=== PATIENT | female | born 1955 | race Caucasian/White ===

== ENCOUNTER → 2018-06-04 09:07 | Outpatient (CLI) | payer OTHER, SELFPAY ==
--- NOTE | 2018-06-04 09:09 | DI.MG.S_ITS ---
BILATERAL DIGITAL SCREENING MAMMOGRAM 3D/2D WITH CAD: 06/04/2018 CLINICAL: Routine screening. Comparison is made to exams dated: 03/19/2017 mammogram, 06/06/2015 mammogram, and 02/22/2014 mammogram - [facility]. There are scattered fibroglandular elements in both breasts. Current study was also evaluated with a Computer Aided Detection (CAD) system. No significant masses, calcifications, or other findings are seen in either breast. There has been no significant interval change. IMPRESSION: NEGATIVE There is no mammographic evidence of malignancy. A 1 year screening mammogram is recommended.(06/05/2019) This exam was interpreted at Station ID: [id number]. NOTE: For mammograms, a report in lay terms will be sent to the patient. Approximately 15% of breast malignancies will not be visualized mammographically. In the management of a palpable breast mass, a negative mammogram must not discourage biopsy of a clinically suspicious lesion. Electronically Signed By: Alejandra [email or web address]/jm:06/06/2018 07:53:23 letter sent: Normal Exam ACR BI-RADS Category 1: Negative 3341F
== END ==
PROVIDERS: PCP Internal Medicine; Visit Provider Internal Medicine
DX: Z12.31 Encounter for screening mammogram for malignant neoplasm of breast (principal)
CPT/HCPCS: 77063; 77067

== ENCOUNTER → 2018-07-25 08:10 | Outpatient (CLI) | payer OTHER, SELFPAY ==
[2018-07-25 09:29] LABS: Cholesterol 306 mg/dL (140-199); HDL Cholesterol 98 mg/dL (40-60); LDL Cholesterol Calculated 182 mg/dL (<100); Triglycerides 129 mg/dL (35-150)
== END ==
PROVIDERS: PCP Internal Medicine; Visit Provider Internal Medicine
DX: E78.5 Hyperlipidemia, unspecified (principal)
CPT/HCPCS: 36415; 80061

== ENCOUNTER → 2019-09-08 09:39 | Outpatient (CLI) | payer MEDICARE, OTHER, SELFPAY ==
--- NOTE | 2019-09-08 | DI.MG.S_ITS ---
BILATERAL DIGITAL SCREENING MAMMOGRAM 3D/2D WITH CAD: 09/08/2019 CLINICAL: Routine screening. Comparison is made to exams dated: 03/19/2017 mammogram, 06/06/2015 mammogram, and 06/04/2018 mammogram - [facility]. There are scattered fibroglandular elements in both breasts. Current study was also evaluated with a Computer Aided Detection (CAD) system. No significant masses, calcifications, or other findings are seen in either breast. There has been no significant interval change. IMPRESSION: NEGATIVE There is no mammographic evidence of malignancy. A 1 year screening mammogram is recommended. This exam was interpreted at Station ID: [id number]. NOTE: For mammograms, a report in lay terms will be sent to the patient. Approximately 15% of breast malignancies will not be visualized mammographically. In the management of a palpable breast mass, a negative mammogram must not discourage biopsy of a clinically suspicious lesion. Electronically Signed By: Alejandra [email or web address]:09/08/2019 11:31:42 letter sent: Normal Exam ACR BI-RADS Category 1: Negative 3341F
== END ==
PROVIDERS: PCP Internal Medicine; Visit Provider Internal Medicine
DX: Z12.31 Encounter for screening mammogram for malignant neoplasm of breast (principal); Z13.820 Encounter for screening for osteoporosis; Z78.0 Asymptomatic menopausal state; Z82.62 Family history of osteoporosis
CPT/HCPCS: 77063; 77067; 77080

== ENCOUNTER → 2019-11-02 07:48 | Outpatient (CLI) | payer MEDICARE, OTHER, SELFPAY ==
--- NOTE | 2019-11-02 | DI.ECHO.S_ITS ---
[facility] +---------+ : : [id number] : [place] : : : : [id number] : : : : Phone: [phone]---------+ Echocardiogram Report + + :Name: KAVIN CAO Study Date: 11/02/2019 Height: 63 in : :[facility] Weight: 146 lb : : Gender: Female BSA: 1.7 m2 : :: 1955 Age: 64 yrs BP: 140/82 mmHg: :Reason For Study: Cardiomegaly : :Ordering Physician: Laura Llamas Performed By: Heaven Lovett : :Referring: LAURA LLAMAS : + + Interpretation Summary The left ventricle is normal in size. Left ventricular systolic function is normal without focal wall motion abnormalities. The ejection fraction is estimated to be 60-65%. Diastolic parameters suggest a relaxation abnormality of the left ventricle, consistent with probable normal filling pressures. The right ventricle is normal in size and function. The right ventricular systolic pressure is estimated to be at least 19 mmHg based on an estimated right atrial pressure of 3 mm Hg. Both atria are normal in size. There is mild aortic regurgitation. There is no other significant valvular heart disease. The ascending aorta is mild-moderately enlarged. Procedure: A two-dimensional transthoracic echocardiogram with color flow and Doppler was performed. The study quality was technically adequate. There is no prior echocardiogram noted for this patient. The patient was in normal sinus rhythm during the exam. Left Ventricle: The left ventricle is normal in size. Left ventricular wall thickness is mildly increased. Left ventricular systolic function is normal without focal wall motion abnormalities. The ejection fraction is estimated to be 60-65%. Diastolic parameters suggest a relaxation abnormality of the left ventricle, consistent with probable normal filling pressures. Right Ventricle: The right ventricle is normal in size and function. Atria: Both atria are normal in size. There is no Doppler evidence for an interatrial shunt. Mitral Valve: The mitral valve is normal in structure and function. There is trace mitral regurgitation. Aortic Valve: The aortic valve is trileaflet. The aortic valve opens well. There is no aortic valve stenosis. There is mild aortic regurgitation. Tricuspid Valve: The tricuspid valve is normal in structure and function. The right ventricular systolic pressure is estimated to be at least 19 mmHg based on an estimated right atrial pressure of 3 mm Hg. Right ventricular systolic pressure is normal. There is mild tricuspid regurgitation. Pulmonic Valve: The pulmonic valve is not well seen, but is grossly normal. There is a trace or physiologic amount of pulmonic regurgitation. There is no other significant valvular heart disease. Great Vessels: The aortic root is normal size. The ascending aorta is mild- moderately enlarged. The IVC is of normal diameter and collapses greater than 50% with a sniff. This suggests a low right atrial pressure of 3 mm Hg. Pericardium/ Pleura There is no pericardial effusion. There is no pleural effusion. MMode/2D Measurements & Calculations LVIDd: 3.9 cm LVOT diam: 2.0 cm LVIDs: 2.6 cm Ao root diam: 3.1 cm FS: 32.6 % asc Aorta Diam: 3.9 cm EPSS: 0.68 cm Ao Arch Diam (Prox Trans): 2.7 cm IVSd: 1.1 cm LVPWd: 0.97 cm LV siddiqi. diameter/BSA (cm/m^2): 2.3 LV sys. diameter/BSA (cm/m^2): 1.5 LA A2 area: 16.3 cm2 RA long axis: 4.0 cm LA A4 area: 11.8 cm2 RA area: 10.6 cm2 LA length (vol): 4.3 cm RA vol: 24.3 ml LA vol: 38.1 ml RA : 14.3 ml/m2 LA vol index: 22.5 ml/m2 IVC diam: 1.8 cm RVD1 (basal): 2.7 cm TAPSE: 2.3 cm Doppler Measurements & Calculations Ao V2 max: 122.7 cm/sec LVOT Max Guillermo: 93.7 cm/sec Ao V2 mean: 76.3 cm/sec LV V1 max P.5 mmHg Ao max P.0 mmHg LV V1 VTI: 20.4 cm Ao mean P.8 mmHg KRYSTAL(I,D): 2.5 cm2 Ao V2 VTI: 25.3 cm KRYSTAL(V,D): 2.4 cm2 sev ratio: 0.81 KRYSTAL indexed to BSA (cm^2/m^2): 1.5 MV E max guillermo: 66.4 cm/sec TR max guillermo: 200.0 cm/sec MV A max guillermo: 85.3 cm/sec TR max P.0 mmHg MV E/A: 0.78 PA V2 max: 63.0 cm/sec Med Peak E' Guillermo: 4.8 cm/sec PA V2 mean: 44.7 cm/sec E/E' med: 13.7 PA mean P.89 mmHg Lat Peak E' Guillermo: 8.5 cm/sec PA pr(Accel): 26.1 mmHg E/E' lat: 7.8 PA Accel Time: 0.13 sec E/e' average: 10.8 MV dec time: 0.19 sec MV P1/2t: 57.8 msec MV P1/2t max guillermo: 67.7 cm/sec SV(LVOT): 63.1 ml MVA(P1/2t): 3.8 cm2 Reading Physician:[id number] PM
== END ==
PROVIDERS: PCP Internal Medicine; Referring Provider Internal Medicine; Visit Provider Internal Medicine
DX: I08.2 Rheumatic disorders of both aortic and tricuspid valves (principal); I77.89 Other specified disorders of arteries and arterioles
CPT/HCPCS: 93306

== ENCOUNTER → 2021-04-28 11:48 | Outpatient (CLI) | payer MEDICARE, OTHER, SELFPAY ==
[2021-04-28 14:00] LABS: COVID19 -Nasal RAPID Negative (Negative)
== END ==
PROVIDERS: PCP Internal Medicine; Visit Provider Nurse Practitioner
DX: Z01.812 Encounter for preprocedural laboratory examination (principal); Z20.822 Contact with and (suspected) exposure to COVID-19
CPT/HCPCS: 87635; C9803

== ENCOUNTER → 2021-04-29 14:35 | Outpatient (CLI) | payer MEDICARE, OTHER, SELFPAY ==
--- NOTE | 2021-04-29 14:39 | DI.NM.S_ITS ---
PROCEDURE: NM EXERCISE TREADMILL NON NUC COMPARISON: None. INDICATIONS: Chest pain, unspecified FINDINGS: The patient exercised for 9 minutes and 0 seconds, reaching 9.7 METs, RISHABH -16%, and 92% of maximum predicted heart rate. No angina during the study. No ischemic ST changes. Appropriate BP response to exercise. IMPRESSION: Good exercise tolerance with no angina and no ischemic ST changes. Dictated by: Stephen Roach MD on 04/29/2021 at 16:32 Approved by: Stephen Roach MD on 04/29/2021 at 16:34
== END ==
PROVIDERS: PCP Internal Medicine; Referring Provider Internal Medicine; Visit Provider Internal Medicine
DX: R07.9 Chest pain, unspecified (principal)
CPT/HCPCS: 93017

== ENCOUNTER 2021-07-20 04:46 | Emergency (ER) | payer MEDICARE, OTHER, SELFPAY ==
[2021-07-20] VITALS (36 sets, daily range): BP systolic 117–187; BP diastolic 57–95; PULSE 61–81; RESP 7–21; TEMP 37.1; O2SAT 94–100; BMI 24.7
--- NOTE | 2021-07-20 05:05 | DI.RAD.S_ITS ---
PROCEDURE: XR CHEST 1V INDICATIONS: chest pain TECHNIQUE: One view of the chest was acquired. COMPARISON: None. FINDINGS: Surgical changes and devices: None. Lungs and pleura: Lungs are clear. No pleural effusions or pneumothorax. Mediastinum: Mediastinal contours appear normal. Heart size is normal. Bones and chest wall: No suspicious bony lesions. Overlying soft tissues appear unremarkable. IMPRESSION: No acute cardiopulmonary findings Note: Final report is concordant with preliminary interpretation by [facility] Approved by: Oscar Mcdonough M.D. on 07/20/2021 at 7:15
[2021-07-20 05:14] LABS: Add Manual Diff / Slide Review NO; Basophils Absolute Auto 100 /uL (0-100); Basophils Percent Auto 0.9 % (0-2); Eosinophils Absolute Auto 500 /uL (0-450); Eosinophils Percent Auto 7.6 % (2-4); Hemoglobin 14.3 g/dL (12.0-16.0); Lymphocytes Absolute Auto 2100 /uL (1100-4500); Lymphocytes Percent Auto 32.9 % (25-40); Mean Corpuscular Hemoglobin 31.7 PG (26-34); Mean Corpuscular Volume 90.6 fL (80-100); Monocytes Absolute Auto 1000 /uL (0-900); Monocytes Percent Auto 15.6 % (3-14); Neutrophils Absolute Auto 2800 /uL (1500-7000); Platelet Count 251 X10^3/uL (150-400); Red Blood Cell Count 4.52 X10^6/uL (4.0-5.2); Red Cell Distribution Width 12.9 % (11.6-14.8); White Blood Cell Count 6.5 X10^3/uL (4.5-11.0)
[2021-07-20 05:20] LABS: Alanine Aminotransferase 46 IU/L (<35); Albumin Globulin Ratio 1.6 (1.0-2.8); Alkaline Phosphatase 136 U/L (38-126); Aspartate Aminotransferase 43 IU/L (14-36); BUN Creatinine Ratio 20.3 (6-22); Bilirubin Total 0.7 mg/dL (0.2-1.3); Blood Urea Nitrogen 14 mg/dL (7-17); Calcium 10.8 mg/dL (8.4-10.2); Carbon Dioxide 27 mmol/L (22-32); Chloride 100 mmol/L (98-107); Creatine Kinase 53 U/L (30-135); Estimated Glomerular Filt Rate > 60.0 mL/min (>60); Globulin 3.2 g/dL (1.7-4.1); Glucose 110 mg/dL (80-110); HEMOLYSIS < 15 (0-50); Lipase 77 U/L (23-300); Sodium 139 mmol/L (137-145); Total Protein 8.2 g/dL (6.3-8.2)
[2021-07-20] MEDS: PANTOPRAZOLE 40 MG VIAL IV (05:22)
[2021-07-20 05:31] LABS: COVID19 -Nasal RAPID Negative (Negative)
[2021-07-20 05:32] LABS: Troponin I < 0.012 ng/mL (0.01-0.034)
--- NOTE | 2021-07-20 05:55 | ED.CHESTPAIN ---
HPI - Chest Pain <Ronda Cano DO - Last Filed: 07/24/21 18:39> General Chief Complaint: Chest Pain Stated Complaint: chest pain, heart burn, diarrhea Time Seen by Provider: 07/20/21 04:49 Source: patient Mode of arrival: Ambulatory Limitations: no limitations History of Present Illness HPI narrative: Patient is a 66-year-old female who presents with chest discomfort. She states she feels like she has acid reflux burning chest her chest feels heavy. It is non radiating. She denies any shortness of breath. She has never felt anything like this before. She has also had a few episodes of diarrhea today but she feels like that some control. She denies any abdominal pain no fever or chills. Related Data Previous Rx's Medication Instructions Recorded aspirin 81 mg tablet,delayed 81 mg PO DAILY #30 tab 07/21/21 release atorvastatin 10 mg tablet 20 mg PO DAILY #90 tab 07/21/21 losartan 25 mg tablet 25 mg PO DAILY #30 tab 07/21/21 Allergies Allergy/AdvReac Type Severity Reaction Status Date / Time hydrocodone [HYDROCODONE] Allergy Unknown Verified 07/21/21 04:32 Review of Systems <Ronda Cano DO - Last Filed: 07/24/21 18:39> Review of Systems Narrative: GENERAL: Denies chills, fatigue, malaise, fever, sweats, travel HEENT: Denies sinus pain, ear pain, sore throat, difficulty swallowing, neck pain RESPIRATORY: Denies dyspnea, cough, wheezing, hemoptysis, sputum. CARDIOVASCULAR: See HPI GASTROINTESTINAL: See HPI : Denies dysuria, frequency, incontinence, hematuria, urinary retention, flank pain. MUSCULOSKELETAL: Denies weakness, joint pain, or bony pain SKIN: No rash, no erythema, no pruritus NEUROLOGIC: Denies weakness, dizziness, headache, numbness, change in speech, confusion PSYCHIATRIC: No concerning psychosocial issues. 12 point review of systems is negative except for those stated above and HPI Patient History <DO Werner Light Last Filed: 07/24/21 18:39> Surgical History Fracture of ankle History of appendectomy Family History Brother Age: 71 COPD (chronic obstructive pulmonary disease) High cholesterol Father Diabetes mellitus Heart disease High cholesterol Social History household members: spouse Smoking Status: Never smoker alcohol intake: current Smoking Status: Never smoker alcohol intake frequency: 0-2 drinks per day Substance Use Type: does not use Exam <Rnoda Cano DO - Last Filed: 07/24/21 18:39> Initial Vital Signs Initial Vital Signs: Vital Signs Temperature 98.7 F 07/20/21 04:55 Pulse Rate 66 07/20/21 04:55 Respiratory Rate 17 07/20/21 04:55 Blood Pressure 185/95 H 07/20/21 04:55 Pulse Oximetry 100 07/20/21 04:55 GENERAL: Mildly anxious 66-year-old female no acute distress HEENT: Head atraumatic,EOMI, pupils reactive, face symmetric, moist mucous membranes CARDIOVASCULAR: Regular rate and rhythm without murmurs, rubs or gallops. RESPIRATORY: Breath sounds equal bilaterally, no wheezes rales or rhonchi. ABDOMEN: Soft, nontender. Normoactive bowel sounds all 4 quadrants. No guarding or rebound. : No CVA tenderness EXTREMITIES: Normal range of motion, no clubbing or edema. Neurovascularly intact NEUROLOGICAL: Alert and oriented x4.Normal gait and speech. SKIN: Warm, dry, no laceration, no petechiae, no rashes or lesions. <Allie Knott DO - Last Filed: 07/20/21 09:35> Initial Vital Signs Initial Vital Signs: Vital Signs Temperature 98.7 F 07/20/21 04:55 Pulse Rate 66 07/20/21 04:55 Respiratory Rate 17 07/20/21 04:55 Blood Pressure 185/95 H 07/20/21 04:55 Pulse Oximetry 100 07/20/21 04:55 Scores <Ronda Cnao DO - Last Filed: 07/24/21 18:39> HEART Score Heart Score history: Moderately Suspicious Heart Score EKG: Normal Heart Score Age: > or = 65 years old Heart Score risk factors: 1-2 risk factors Heart Score troponin: < or = to normal limit Heart Score Total: 4 <Allie Knott DO - Last Filed: 07/20/21 09:35> HEART Score Heart Score Total: 4 Course <Ronda Cano DO - Last Filed: 07/24/21 18:39> Orders Ordered: Discontinued Medications Aspirin (Aspirin 81 Mg Chew Tab) 324 mg PO NOW ONE Stop: 07/20/21 05:09 Last Admin: 07/20/21 05:23 Dose: Not Given Documented by: JULIO Nitroglycerin (Nitroglycerin 0.4 Mg Sl Tab) 0.4 mg SL [id number] PRN PRN Reason: Chest Pain Last Admin: 07/20/21 06:31 Dose: 0.4 mg Documented by: Admin: 07/20/21 06:26 Dose: 0.4 mg Documented by: Admin: 07/20/21 06:19 Dose: 0.4 mg Documented by: JULIO Pantoprazole Sodium (Pantoprazole 40 Mg Vial) 40 mg IV NOW ONE Stop: 07/20/21 05:09 Last Admin: 07/20/21 05:22 Dose: 40 mg Documented by: JULIO Vital Signs Vital signs: Vital Signs - 8 hr 07/20/21 04:55 07/20/21 06:20 07/20/21 06:21 Temperature 98.7 F Pulse Rate 66 71 Respiratory Rate 17 13 Blood Pressure 185/95 H 187/81 H Pulse Oximetry 100 98 07/20/21 06:25 07/20/21 06:26 07/20/21 06:30 Temperature Pulse Rate 77 78 Respiratory Rate 20 18 Blood Pressure 173/89 H 179/89 H 153/83 H Pulse Oximetry 95 97 07/20/21 06:31 07/20/21 06:35 07/20/21 06:40 Temperature Pulse Rate 79 81 Respiratory Rate 18 12 Blood Pressure 153/83 H 119/64 119/74 Pulse Oximetry 97 97 07/20/21 06:42 07/20/21 06:45 07/20/21 06:50 Temperature Pulse Rate 76 70 62 Respiratory Rate 18 15 10 L Blood Pressure 125/83 125/72 138/74 Pulse Oximetry 98 98 98 07/20/21 06:55 07/20/21 07:00 07/20/21 07:05 Temperature Pulse Rate 65 66 67 Respiratory Rate 7 L 11 L 21 Blood Pressure 158/78 H 143/75 H 141/76 H Pulse Oximetry 99 98 95 07/20/21 07:10 07/20/21 07:15 07/20/21 07:20 Temperature Pulse Rate 67 65 67 Respiratory Rate 11 L 13 16 Blood Pressure 134/73 140/80 134/77 Pulse Oximetry 96 97 97 07/20/21 07:25 07/20/21 07:30 07/20/21 07:35 Temperature Pulse Rate 67 68 65 Respiratory Rate 20 14 11 L Blood Pressure 138/75 156/75 H 136/65 Pulse Oximetry 96 96 96 07/20/21 07:40 07/20/21 07:45 07/20/21 07:50 Temperature Pulse Rate 67 65 64 Respiratory Rate 13 15 18 Blood Pressure 132/63 132/59 L 120/62 Pulse Oximetry 96 96 96 07/20/21 07:55 07/20/21 08:00 07/20/21 08:05 Temperature Pulse Rate 65 62 61 Respiratory Rate 17 14 16 Blood Pressure 137/63 129/57 L 130/61 Pulse Oximetry 96 96 96 07/20/21 08:10 07/20/21 08:15 07/20/21 08:20 Temperature Pulse Rate 63 67 65 Respiratory Rate 15 12 9 L Blood Pressure 133/63 123/65 131/63 Pulse Oximetry 95 95 96 07/20/21 08:25 07/20/21 08:30 07/20/21 08:35 Temperature Pulse Rate 65 65 67 Respiratory Rate 10 L 10 L 19 Blood Pressure 138/67 133/62 117/61 Pulse Oximetry 96 96 95 07/20/21 08:40 07/20/21 08:45 07/20/21 08:50 Temperature Pulse Rate 71 69 68 Respiratory Rate 17 12 12 Blood Pressure 122/66 131/71 119/62 Pulse Oximetry 94 94 95 <Allie Knott, - Last Filed: 07/20/21 09:35> Orders Ordered: Discontinued Medications Aspirin (Aspirin 81 Mg Chew Tab) 324 mg PO NOW ONE Stop: 07/20/21 05:09 Last Admin: 07/20/21 05:23 Dose: Not Given Documented by: JULIO Nitroglycerin (Nitroglycerin 0.4 Mg Sl Tab) 0.4 mg SL [id number] PRN PRN Reason: Chest Pain Last Admin: 07/20/21 06:31 Dose: 0.4 mg Documented by: Admin: 07/20/21 06:26 Dose: 0.4 mg Documented by: Admin: 07/20/21 06:19 Dose: 0.4 mg Documented by: JULIO Pantoprazole Sodium (Pantoprazole 40 Mg Vial) 40 mg IV NOW ONE Stop: 07/20/21 05:09 Last Admin: 07/20/21 05:22 Dose: 40 mg Documented by: JULIO Reevaluation(s) Reevaluation #1: This is a 66-year-old female who presented for chest pain, diaphoresis and some nausea and diarrhea overnight. Patient states she had some cold symptoms a week ago which had been resolving and she has been feeling much better. She woke up about 2:00 a.m. with some heartburn and then started feeling worse earlier this morning. She states she felt bad enough she came in. She has some nonspecific change on her EKG, new shell troponin is negative, chest x-ray is negative with no other major lab findings. Patient was seen independently evaluated by myself. She has a reassuring exam. Patient was signed out by Dr. Cano. Patient does have a family history of father and grandfather both having cardiac issues with her grandfather dying in his 60s and her father having multiple heart attacks in his 60s. She has a brother with multiple medical issues unlikely cardiac likely coronary artery disease. She has a statin. She states her blood pressure was quite elevated 170s over 101 at and they been monitoring it with her nurse practitioner. She has had a stress in 04/29/2021. Her chest pain resolved with 3 nitro. Patient does appear to be high risk. She was offered observation as I feel that would be most appropriate and this was made clear to the patient as well. Patient did decide to return home she is aware she has recurrent symptoms she is to return and we did close the loop with her primary care service so that they can follow-up shortly and have patient re-evaluated appropriately. Patient was asked to take an aspirin 81 mg daily. Time: 07:33 Vital Signs Vital signs: Vital Signs - 8 hr 07/20/21 04:55 07/20/21 06:20 07/20/21 06:21 Temperature 98.7 F Pulse Rate 66 71 Respiratory Rate 17 13 Blood Pressure 185/95 H 187/81 H Pulse Oximetry 100 98 07/20/21 06:25 07/20/21 06:26 07/20/21 06:30 Temperature Pulse Rate 77 78 Respiratory Rate 20 18 Blood Pressure 173/89 H 179/89 H 153/83 H Pulse Oximetry 95 97 07/20/21 06:31 07/20/21 06:35 07/20/21 06:40 Temperature Pulse Rate 79 81 Respiratory Rate 18 12 Blood Pressure 153/83 H 119/64 119/74 Pulse Oximetry 97 97 07/20/21 06:42 07/20/21 06:45 07/20/21 06:50 Temperature Pulse Rate 76 70 62 Respiratory Rate 18 15 10 L Blood Pressure 125/83 125/72 138/74 Pulse Oximetry 98 98 98 07/20/21 06:55 07/20/21 07:00 07/20/21 07:05 Temperature Pulse Rate 65 66 67 Respiratory Rate 7 L 11 L 21 Blood Pressure 158/78 H 143/75 H 141/76 H Pulse Oximetry 99 98 95 07/20/21 07:10 07/20/21 07:15 07/20/21 07:20 Temperature Pulse Rate 67 65 67 Respiratory Rate 11 L 13 16 Blood Pressure 134/73 140/80 134/77 Pulse Oximetry 96 97 97 07/20/21 07:25 07/20/21 07:30 07/20/21 07:35 Temperature Pulse Rate 67 68 65 Respiratory Rate 20 14 11 L Blood Pressure 138/75 156/75 H 136/65 Pulse Oximetry 96 96 96 07/20/21 07:40 07/20/21 07:45 07/20/21 07:50 Temperature Pulse Rate 67 65 64 Respiratory Rate 13 15 18 Blood Pressure 132/63 132/59 L 120/62 Pulse Oximetry 96 96 96 07/20/21 07:55 07/20/21 08:00 07/20/21 08:05 Temperature Pulse Rate 65 62 61 Respiratory Rate 17 14 16 Blood Pressure 137/63 129/57 L 130/61 Pulse Oximetry 96 96 96 07/20/21 08:10 07/20/21 08:15 07/20/21 08:20 Temperature Pulse Rate 63 67 65 Respiratory Rate 15 12 9 L Blood Pressure 133/63 123/65 131/63 Pulse Oximetry 95 95 96 07/20/21 08:25 07/20/21 08:30 07/20/21 08:35 Temperature Pulse Rate 65 65 67 Respiratory Rate 10 L 10 L 19 Blood Pressure 138/67 133/62 117/61 Pulse Oximetry 96 96 95 07/20/21 08:40 07/20/21 08:45 07/20/21 08:50 Temperature Pulse Rate 71 69 68 Respiratory Rate 17 12 12 Blood Pressure 122/66 131/71 119/62 Pulse Oximetry 94 94 95 MDM - Chest Pain <Ronda Cano DO - Last Filed: 07/24/21 18:39> Lab Data Result diagrams: 07/20/21 05:00 07/20/21 05:00 Labs: Lab Results 07/20/21 07/20/21 07/20/21 Range/Units 05:00 05:00 05:00 WBC 6.5 (4.5-11.0) X10^3/uL RBC 4.52 (4.0-5.2) X10^6/uL Hgb 14.3 (12.0-16.0) g/dL Hct 41.0 (36-46) % MCV 90.6 (80-100) fL MCH 31.7 (26-34) PG MCHC 35.0 (30-36) % RDW 12.9 (11.6-14.8) % Plt Count 251 (150-400) X10^3/uL Neut % (Auto) 43.0 L (50-75) % Lymph % (Auto) 32.9 (25-40) % Gentry % (Auto) 15.6 H (3-14) % Eos % (Auto) 7.6 H (2-4) % Baso % (Auto) 0.9 (0-2) % Neut # (Auto) 2800 (3073-1548) /uL Lymph # (Auto) 2100 (2999-4503) /uL Gentry # (Auto) 1000 H (0-900) /uL Eos # (Auto) 500 H (0-450) /uL Baso # (Auto) 100 (0-100) /uL Sodium 139 (137-145) mmol/L Potassium 4.0 (3.4-5.1) mmol/L Chloride 100 (98-107) mmol/L Carbon Dioxide 27 (22-32) mmol/L BUN 14 (7-17) mg/dL Creatinine 0.69 (0.52-1.04) mg/dL Estimated GFR > 60.0 (>60) mL/min BUN/Creatinine Ratio 20.3 (6-22) Glucose 110 (80-110) mg/dL Calcium 10.8 H (8.4-10.2) mg/dL Total Bilirubin 0.7 (0.2-1.3) mg/dL AST 43 H (14-36) IU/L ALT 46 H (<35) IU/L Alkaline Phosphatase 136 H (38-126) U/L Total Creatine Kinase 53 (30-135) U/L CK-MB (CK-2) TNP CK-MB (CK-2) Rel Index TNP Troponin I < 0.012 (0.01-0.034) ng/mL Total Protein 8.2 (6.3-8.2) g/dL Albumin 5.0 (3.5-5.0) g/dL Globulin 3.2 (1.7-4.1) g/dL Albumin/Globulin Ratio 1.6 (1.0-2.8) Lipase 77 (23-300) U/L SARS-CoV-2 (PCR) Negative (Negative) 07/20/21 Range/Units 07:23 WBC (4.5-11.0) X10^3/uL RBC (4.0-5.2) X10^6/uL Hgb (12.0-16.0) g/dL Hct (36-46) % MCV (80-100) fL MCH (26-34) PG MCHC (30-36) % RDW (11.6-14.8) % Plt Count (150-400) X10^3/uL Neut % (Auto) (50-75) % Lymph % (Auto) (25-40) % Gentry % (Auto) (3-14) % Eos % (Auto) (2-4) % Baso % (Auto) (0-2) % Neut # (Auto) (8263-6903) /uL Lymph # (Auto) (4283-0089) /uL Gentry # (Auto) (0-900) /uL Eos # (Auto) (0-450) /uL Baso # (Auto) (0-100) /uL Sodium (137-145) mmol/L Potassium (3.4-5.1) mmol/L Chloride (98-107) mmol/L Carbon Dioxide (22-32) mmol/L BUN (7-17) mg/dL Creatinine (0.52-1.04) mg/dL Estimated GFR (>60) mL/min BUN/Creatinine Ratio (6-22) Glucose (80-110) mg/dL Calcium (8.4-10.2) mg/dL Total Bilirubin (0.2-1.3) mg/dL AST (14-36) IU/L ALT (<35) IU/L Alkaline Phosphatase (38-126) U/L Total Creatine Kinase (30-135) U/L CK-MB (CK-2) CK-MB (CK-2) Rel Index Troponin I < 0.012 (0.01-0.034) ng/mL Total Protein (6.3-8.2) g/dL Albumin (3.5-5.0) g/dL Globulin (1.7-4.1) g/dL Albumin/Globulin Ratio (1.0-2.8) Lipase (23-300) U/L SARS-CoV-2 (PCR) (Negative) ECG Data Interpretation: Normal sinus rhythm rate 64 NM interval 184 QRS 82 QTC 437 T-wave inversion noted in lead [address] changes MDM Narrative Medical decision making narrative: Patient signed out to Dr. Knott This is a 66-year-old female comes in with complaint of chest pain, diaphoresis, heartburn and some diarrhea overnight. She tried oral medication at home. She ultimately came here had 3 nitro which improved her symptoms. She has had negative troponin x2 but does have some ST change between her 1st and 2nd EKG with flipped T-wave in V4 V5 and nonspecific change otherwise. She did not have priors for comparison. Chest x-ray and other labs do not show clear cause. We discussed observation which patient politely declines. She continues to be chest pain-free here in the department but spoke with the on-call physician to arrange short-term follow-up. Patient was requested to take an aspirin 81 mg daily and would likely benefit from new med perfusion scan she has had a treadmill stress in April. Dr. Ferrara the on-call physician will contact her service to let them know and patient has also been instructed to contact them if she has not heard from the office by noon tomorrow. Patient is also where she should return at any time if she has recurrent symptoms. <Allie Knott, DO - Last Filed: 07/20/21 09:35> Lab Data Labs: Lab Results 07/20/21 07/20/21 07/20/21 Range/Units 05:00 05:00 05:00 WBC 6.5 (4.5-11.0) X10^3/uL RBC 4.52 (4.0-5.2) X10^6/uL Hgb 14.3 (12.0-16.0) g/dL Hct 41.0 (36-46) % MCV 90.6 (80-100) fL MCH 31.7 (26-34) PG MCHC 35.0 (30-36) % RDW 12.9 (11.6-14.8) % Plt Count 251 (150-400) X10^3/uL Neut % (Auto) 43.0 L (50-75) % Lymph % (Auto) 32.9 (25-40) % Gentry % (Auto) 15.6 H (3-14) % Eos % (Auto) 7.6 H (2-4) % Baso % (Auto) 0.9 (0-2) % Neut # (Auto) 2800 (5889-6924) /uL Lymph # (Auto) 2100 (9839-3673) /uL Gentry # (Auto) 1000 H (0-900) /uL Eos # (Auto) 500 H (0-450) /uL Baso # (Auto) 100 (0-100) /uL Sodium 139 (137-145) mmol/L Potassium 4.0 (3.4-5.1) mmol/L Chloride 100 (98-107) mmol/L Carbon Dioxide 27 (22-32) mmol/L BUN 14 (7-17) mg/dL Creatinine 0.69 (0.52-1.04) mg/dL Estimated GFR > 60.0 (>60) mL/min BUN/Creatinine Ratio 20.3 (6-22) Glucose 110 (80-110) mg/dL Calcium 10.8 H (8.4-10.2) mg/dL Total Bilirubin 0.7 (0.2-1.3) mg/dL AST 43 H (14-36) IU/L ALT 46 H (<35) IU/L Alkaline Phosphatase 136 H (38-126) U/L Total Creatine Kinase 53 (30-135) U/L CK-MB (CK-2) TNP CK-MB (CK-2) Rel Index TNP Troponin I < 0.012 (0.01-0.034) ng/mL Total Protein 8.2 (6.3-8.2) g/dL Albumin 5.0 (3.5-5.0) g/dL Globulin 3.2 (1.7-4.1) g/dL Albumin/Globulin Ratio 1.6 (1.0-2.8) Lipase 77 (23-300) U/L SARS-CoV-2 (PCR) Negative (Negative) 07/20/21 Range/Units 07:23 WBC (4.5-11.0) X10^3/uL RBC (4.0-5.2) X10^6/uL Hgb (12.0-16.0) g/dL Hct (36-46) % MCV (80-100) fL MCH (26-34) PG MCHC (30-36) % RDW (11.6-14.8) % Plt Count (150-400) X10^3/uL Neut % (Auto) (50-75) % Lymph % (Auto) (25-40) % Gentry % (Auto) (3-14) % Eos % (Auto) (2-4) % Baso % (Auto) (0-2) % Neut # (Auto) (7812-1856) /uL Lymph # (Auto) (3262-0595) /uL Gentry # (Auto) (0-900) /uL Eos # (Auto) (0-450) /uL Baso # (Auto) (0-100) /uL Sodium (137-145) mmol/L Potassium (3.4-5.1) mmol/L Chloride (98-107) mmol/L Carbon Dioxide (22-32) mmol/L BUN (7-17) mg/dL Creatinine (0.52-1.04) mg/dL Estimated GFR (>60) mL/min BUN/Creatinine Ratio (6-22) Glucose (80-110) mg/dL Calcium (8.4-10.2) mg/dL Total Bilirubin (0.2-1.3) mg/dL AST (14-36) IU/L ALT (<35) IU/L Alkaline Phosphatase (38-126) U/L Total Creatine Kinase (30-135) U/L CK-MB (CK-2) CK-MB (CK-2) Rel Index Troponin I < 0.012 (0.01-0.034) ng/mL Total Protein (6.3-8.2) g/dL Albumin (3.5-5.0) g/dL Globulin (1.7-4.1) g/dL Albumin/Globulin Ratio (1.0-2.8) Lipase (23-300) U/L SARS-CoV-2 (PCR) (Negative) Imaging Data Chest x-ray: Radiologist's Impression: No acute findings. ECG Data Interpretation: Normal sinus rhythm rate 64 NM interval 184 QRS 82 QTC 437 T-wave inversion noted in lead [address] changes Sinus rhythm, rate of 64 NM 184 QRS 82 and QTC of 437. T-wave version in lead 3. Nonspecific change. No priors for comparison. EKG 2. Sinus rhythm rate of 67, NM 184 QRS is 78 QTC 443. Q-wave is still present in 3 slight T-wave inversion in AVF. Patient also has change in V4 V5 which does appear different from prior EKG from today. MDM Narrative Medical decision making narrative: This is a 66-year-old female comes in with complaint of chest pain, diaphoresis, heartburn and some diarrhea overnight. She tried oral medication at home. She ultimately came here had 3 nitro which improved her symptoms. She has had negative troponin x2 but does have some ST change between her 1st and 2nd EKG with flipped T-wave in V4 V5 and nonspecific change otherwise. She did not have priors for comparison. Chest x-ray and other labs do not show clear cause. We discussed observation which patient politely declines. She continues to be chest pain-free here in the department but spoke with the on-call physician to arrange short-term follow-up. Patient was requested to take an aspirin 81 mg daily and would likely benefit from new med perfusion scan she has had a treadmill stress in April. Dr. Ferrara the on-call physician will contact her service to let them know and patient has also been instructed to contact them if she has not heard from the office by noon tomorrow. Patient is also where she should return at any time if she has recurrent symptoms. Discharge Plan Departure Patient Disposition: Home Clinical Impression: Chest pain Qualifiers: Chest pain type: unspecified Qualified Code(s): R07.9 - Chest pain, unspecified Instructions: DI for Chest Pain Activity Restrictions/Additional Instructions: Follow up with your physician this week for recheck and repeat testing. I suspect that your chest pain was cardiac and recommend observation overnight. Follow up in the next 2-3 days for repeat testing such as a perfusion stress test. If you have not heard from the office by noon tomorrow please call them. I spoke with Dr. Polanco who will let your office know to contact you tomorrow. Would recommend an aspirin 81 mg daily until you see your physician. Continue home medication as prescribed. Please return for new chest pain, shortness of breath, lightheadedness or passing out, diaphoresis or sweating, persistent nausea vomiting, swelling extremities or other new or concerning symptoms. Prescriptions: No Action aspirin 81 mg Tablet,Delayed Release (Dr/Ec) 81 mg PO DAILY Qty: 30 0RF atorvastatin 10 mg tablet 20 mg PO DAILY Qty: 90 0RF losartan 25 mg tablet 25 mg PO DAILY Qty: 30 0RF Referrals: Laura Paz ARNP [Primary Care Provider] -
[2021-07-20] MEDS: NITROGLYCERIN 0.4 MG SL TAB SL ×3 (06:19→06:31)
[2021-07-20 07:53] LABS: Troponin I < 0.012 ng/mL (0.01-0.034)
== END 2021-07-20 09:03 | disposition home or self-care (01) ==
PROVIDERS: Emergency Medicine; Emergency Provider Emergency Medicine; PCP Internal Medicine
DX: R07.9 Chest pain, unspecified (principal); R19.7 Diarrhea, unspecified; Z20.822 Contact with and (suspected) exposure to COVID-19
CPT/HCPCS: 36415; 71045; 80053; 82550; 83690; 83735; 84484; 85025; 87635; 93005; 96374; 99284; C9803; C9113

== ENCOUNTER 2021-07-20 22:05 | Observation (INO) | payer MEDICARE, OTHER, SELFPAY ==
[2021-07-20 22:17] VITALS: BP 225/110; PULSE 65; RESP 18; TEMP 36.8; O2SAT 98
--- NOTE | 2021-07-20 22:17 | DI.RAD.S_ITS ---
PROCEDURE: XR CHEST 1V INDICATIONS: chest pain TECHNIQUE: One view of the chest was acquired. COMPARISON: [facility], CR, XR CHEST 1V, 07/20/2021, 5:34. FINDINGS: Surgical changes and devices: None. Lungs and pleura: Lungs are clear. No pleural effusions or pneumothorax. Mediastinum: Mediastinal contours appear normal. Heart size is normal. Bones and chest wall: No suspicious bony lesions. Overlying soft tissues appear unremarkable. IMPRESSION: Stable radiographic evaluation of the chest without acute cardiopulmonary abnormalities or focal airspace disease. Dictated by: Ethan Peralta M.D. on 07/20/2021 at 22:46 Approved by: Ethan Peralta M.D. on 07/20/2021 at 22:47
[2021-07-20 22:23] VITALS: PULSE 66; O2SAT 100
[2021-07-20 22:25] VITALS: BP 192/103; PULSE 72; RESP 12; O2SAT 100
--- NOTE | 2021-07-20 22:26 | ED.CHESTPAIN ---
HPI - Chest Pain General Chief Complaint: Chest Pain Stated Complaint: CHEST PAIN HIGH BLOOD PRESSURE Time Seen by Provider: 07/20/21 22:21 Source: patient Mode of arrival: Ambulatory History of Present Illness HPI narrative: 66-year-old female nonsmoker with history of hyperlipidemia presents for the 2nd time in the past 12 hours and a chief complaint of severe, 10 on a 10 central chest pressure and heaviness associated with this we spoke with the redness and diaphoresis. She denies any obvious provocation or palliation. There is no clear exertional component. She has had no fever or chills. She denies recent travel, history of blood clot. She was seen here earlier today and had very similar symptoms and felt much better after nitro. After lengthy discussion with the emergency provider a was recommended that she be admitted to the hospital but patient felt significantly better and would have preferred to go home. She was doing okay for much of the day and then again tonight at 9:00 p.m., while at rest her symptoms came on. When she got here she was 10/10 pain and improved to a 5/10 after 1st nitro Related Data Previous Rx's Medication Instructions Recorded atorvastatin 10 mg tablet 10 mg PO DAILY #90 tab 08/04/18 Allergies Allergy/AdvReac Type Severity Reaction Status Date / Time hydrocodone [HYDROCODONE] Allergy Unknown Unverified 12/15/17 12:09 Review of Systems Review of Systems Narrative: GENERAL: Denies chills, fatigue, malaise, fever, sweats. HEENT: Denies sinus pain, ear pain, sore throat, difficulty swallowing, dizziness. RESPIRATORY: Denies dyspnea, cough, wheezing, hemoptysis, sputum. CARDIOVASCULAR: See HPI GASTROINTESTINAL: See HPI : Denies dysuria, frequency, incontinence, hematuria, urinary retention. MUSCULOSKELETAL: denies weakness, joint pain, or bony pain SKIN: Denies rash, skin lesions, or other NEUROLOGIC: Denies weakness, headache, numbness, change in speech, confusion, seizures, incoordination. PSYCHIATRIC: No concerning psychosocial issues. 12 point review of systems is negative except for those stated above Patient History Family History Brother Age: 71 COPD (chronic obstructive pulmonary disease) High cholesterol Father Diabetes mellitus Heart disease High cholesterol Social History Smoking Status: Never smoker Smoking Status: Never smoker alcohol intake frequency: 0-2 drinks per day Substance Use Type: does not use Exam Narrative Exam Narrative: GENERAL: [66] year old patient appears stated age. Well-developed patient, in mild distress. HEAD: Atraumatic. Normocephalic. EYES: Pupils equal round and reactive. Extraocular motions intact. No scleral icterus. No injection or drainage. ENT: Nose without bleeding, purulent drainage. Throat without erythema, tonsillar hypertrophy or exudate. Airway patent. NECK: Trachea midline. Non tender CARDIOVASCULAR: Regular rate and rhythm without murmurs, gallops, or rubs. RESPIRATORY: Clear to auscultation. Breath sounds equal bilaterally. No wheezes, rales, or rhonchi. GASTROINTESTINAL: Abdomen soft, non-tender, nondistended. EXTREMITIES: No edema or joint tenderness. BACK: Nontender without deformity or crepitance. No flank tenderness. NEURO: AOx3. SKIN: No rash or erythema of visible areas Initial Vital Signs Initial Vital Signs: Vital Signs Temperature 98.3 F 07/20/21 22:17 Pulse Rate 65 07/20/21 22:17 Respiratory Rate 18 07/20/21 22:17 Blood Pressure 225/110 H 07/20/21 22:17 Pulse Oximetry 98 07/20/21 22:17 Course Orders Ordered: ED Orders 07/20/21 22:15 Complete Blood Count AUTO DIFF Stat Comprehensive Metabolic Panel Stat Lipase Stat Magnesium Stat Troponin & CK Cardiac Panel Stat 07/20/21 22:17 XR chest 1V Stat EKG-12 Lead Stat Nitroglycerin (Nitroglycerin 0.4 Mg Sl Tab) 0.4 mg SL [id number] PRN PRN Reason: Chest Pain Nitroglycerin (Nitroglycerin 0.4 Mg Sl Tab) 0.4 mg SL [id number] PRN PRN Reason: Chest Pain Discontinued Medications Acetaminophen (Acetaminophen 325 Mg Tablet) 650 mg PO NOW ONE Stop: 07/21/21 00:01 Last Admin: 07/21/21 00:07 Dose: 650 mg Documented by: RAQUEL Vital Signs Vital signs: Vital Signs - 8 hr 07/20/21 22:17 07/20/21 22:23 07/20/21 22:25 Temperature 98.3 F Pulse Rate 65 66 72 Respiratory Rate 18 12 Blood Pressure 225/110 H 192/103 H Pulse Oximetry 98 100 100 07/20/21 22:30 07/20/21 23:00 07/20/21 23:30 Temperature Pulse Rate 68 63 63 Respiratory Rate 11 L Blood Pressure 176/98 H 169/80 H 155/72 H Pulse Oximetry 99 97 98 07/21/21 00:09 07/21/21 00:10 07/21/21 00:30 Temperature Pulse Rate 66 67 61 Respiratory Rate 19 Blood Pressure 183/83 H 183/81 H Pulse Oximetry 99 98 97 07/21/21 01:00 Temperature Pulse Rate 64 Respiratory Rate 12 Blood Pressure 185/81 H Pulse Oximetry 97 MDM - Chest Pain Lab Data Result diagrams: 07/20/21 22:15 07/20/21 22:15 Labs: Lab Results 07/20/21 07/20/21 07/20/21 Range/Units 22:15 22:15 22:15 WBC 6.1 (4.5-11.0) X10^3/uL RBC 4.51 (4.0-5.2) X10^6/uL Hgb 14.3 (12.0-16.0) g/dL Hct 41.1 (36-46) % MCV 91.2 (80-100) fL MCH 31.6 (26-34) PG MCHC 34.7 (30-36) % RDW 13.0 (11.6-14.8) % Plt Count 256 (150-400) X10^3/uL Neut % (Auto) 52.3 (50-75) % Lymph % (Auto) 26.2 (25-40) % [place] % (Auto) 15.3 H (3-14) % Eos % (Auto) 5.7 H (2-4) % Baso % (Auto) 0.5 (0-2) % Neut # (Auto) 3200 (7439-4102) /uL Lymph # (Auto) 1600 (4577-5405) /uL [place] # (Auto) 900 (0-900) /uL Eos # (Auto) 300 (0-450) /uL Baso # (Auto) 0 (0-100) /uL Sodium 137 (137-145) mmol/L Potassium 3.7 (3.4-5.1) mmol/L Chloride 98 (98-107) mmol/L Carbon Dioxide 31 (22-32) mmol/L BUN 13 (7-17) mg/dL Creatinine 0.70 (0.52-1.04) mg/dL Estimated GFR > 60.0 (>60) mL/min BUN/Creatinine Ratio 18.6 (6-22) Glucose 109 (80-110) mg/dL Calcium 10.3 H (8.4-10.2) mg/dL Magnesium 1.9 (1.6-2.3) mg/dL Total Bilirubin 0.7 (0.2-1.3) mg/dL AST 41 H (14-36) IU/L ALT 42 H (<35) IU/L Alkaline Phosphatase 136 H (38-126) U/L Total Creatine Kinase 48 (30-135) U/L CK-MB (CK-2) TNP CK-MB (CK-2) Rel Index TNP Troponin I < 0.012 (0.01-0.034) ng/mL Total Protein 8.5 H (6.3-8.2) g/dL Albumin 5.0 (3.5-5.0) g/dL Globulin 3.5 (1.7-4.1) g/dL Albumin/Globulin Ratio 1.4 (1.0-2.8) Lipase 74 (23-300) U/L Imaging Data Chest x-ray: Radiologist's Impression: [address] [id number] ReportSigned Patient: Lorie Ferguson R#: [id number]: 4Acct:[id number]/Sex: 66 / FDate of Service: 07/20/21Loc: EDAccession Number: [id number] Procedure: XR chest 1V Ordering Provider: Jeremy Braden D.O. PROCEDURE: XR CHEST 1V INDICATIONS: chest pain TECHNIQUE: One view of the chest was acquired. COMPARISON: [facility], [place], XR CHEST 1V, 07/20/2021, 5:34. FINDINGS: Surgical changes and devices: None. Lungs and pleura: Lungs are clear. No pleural effusions or pneumothorax. Mediastinum: Mediastinal contours appear normal. Heart size is normal. Bones and chest wall: No suspicious bony lesions. Overlying soft tissues appear unremarkable. IMPRESSION: Stable radiographic evaluation of the chest without acute cardiopulmonary abnormalities or focal airspace disease. Dictated by: Ethan Peralta M.D. on 07/20/2021 at 22:46 Approved by: Ethan Peralta M.D. on 07/20/2021 at 22:47 [facility] Narrative Medical decision making narrative: Patient with recurrence of high risk chest pain, pressure with radiation, diaphoresis and nausea, not obviously exertional, multiple troponins are unremarkable and EKG showed no occlusive or ischemic findings. Patient was appropriate for admission early this morning but elected to go home, upon return her symptoms or worse and she is quick to agree. On admission she is pain free. She is in full understanding and agreement with the plan. Discharge Plan Departure Patient Disposition: Admitted as Observation Clinical Impression: Chest pain Qualifiers: Chest pain type: unspecified Qualified Code(s): R07.9 - Chest pain, unspecified Admit Date/Time: 07/21/21 03:35 Admit Provider: Suzanne Cherry
[2021-07-20 22:30] VITALS: BP 176/98; PULSE 68; O2SAT 99
[2021-07-20 22:30] LABS: Add Manual Diff / Slide Review NO; Basophils Absolute Auto 0 /uL (0-100); Basophils Percent Auto 0.5 % (0-2); Eosinophils Absolute Auto 300 /uL (0-450); Eosinophils Percent Auto 5.7 % (2-4); Hematocrit 41.1 % (36-46); Hemoglobin 14.3 g/dL (12.0-16.0); Lymphocytes Absolute Auto 1600 /uL (1100-4500); Lymphocytes Percent Auto 26.2 % (25-40); Mean Corpuscular HGB Conc 34.7 % (30-36); Mean Corpuscular Hemoglobin 31.6 PG (26-34); Mean Corpuscular Volume 91.2 fL (80-100); Monocytes Absolute Auto 900 /uL (0-900); Monocytes Percent Auto 15.3 % (3-14); Neutrophils Absolute Auto 3200 /uL (1500-7000); Neutrophils Percent Auto 52.3 % (50-75); Platelet Count 256 X10^3/uL (150-400); Red Blood Cell Count 4.51 X10^6/uL (4.0-5.2); White Blood Cell Count 6.1 X10^3/uL (4.5-11.0)
[2021-07-20 22:33] LABS: Alanine Aminotransferase 42 IU/L (<35); Albumin Globulin Ratio 1.4 (1.0-2.8); Alkaline Phosphatase 136 U/L (38-126); Aspartate Aminotransferase 41 IU/L (14-36); BUN Creatinine Ratio 18.6 (6-22); Bilirubin Total 0.7 mg/dL (0.2-1.3); Blood Urea Nitrogen 13 mg/dL (7-17); Calcium 10.3 mg/dL (8.4-10.2); Carbon Dioxide 31 mmol/L (22-32); Chloride 98 mmol/L (98-107); Creatine Kinase 48 U/L (30-135); Estimated Glomerular Filt Rate > 60.0 mL/min (>60); Globulin 3.5 g/dL (1.7-4.1); Glucose 109 mg/dL (80-110); HEMOLYSIS < 15 (0-50); Lipase 74 U/L (23-300); Magnesium 1.9 mg/dL (1.6-2.3); Potassium 3.7 mmol/L (3.4-5.1); Sodium 137 mmol/L (137-145); Total Protein 8.5 g/dL (6.3-8.2)
[2021-07-20 22:45] LABS: Troponin I < 0.012 ng/mL (0.01-0.034)
[2021-07-20 23:00] VITALS: BP 169/80; PULSE 63; RESP 11; O2SAT 97
[2021-07-20 23:30] VITALS: BP 155/72; PULSE 63; O2SAT 98
[2021-07-21] VITALS (23 sets, daily range): BP systolic 145–185; BP diastolic 77–92; PULSE 55–77; RESP 8–34; O2SAT 95–100; BMI 24.7
[2021-07-21] MEDS: ACETAMINOPHEN 325 MG TABLET 650 MG PO (00:07)
--- NOTE | 2021-07-21 04:12 | PM.HP.1 ---
History of Present Illness History of Present Illness Date Patient Seen: 07/21/21 Time Patient Seen: 04:12 Chief complaint: CHEST PAIN HIGH BLOOD PRESSURE Narrative: Lorie Ferguson is a 66-year-old female with hyperlipidemia presented twice today once in the morning of 07/20 and returned tonight with similar complaints of chest pain. During her 1st visit she was hydrated given nitroglycerin and her symptoms seemed resolved. They wanted to keep her in for additional testing however she decided to go home earlier yesterday. She returned at 2100 with a similar feeling of chest pain. She had pressure in her chest that would not let up dry mouth. She did have some nausea and described having heartburn for which she took Pepto-Bismol but the heartburn continued to persist then becoming chest pressure and pain. She denies any shortness of breath, abdominal pain, dysuria, diarrhea or constipation, any edema of her lower extremities, numbing or tingling of her upper or lower extremities. A family history of early cardiac deaths on the part of her grandparents and her father had multiple MIs and diabetes type 2. She is currently being treated for high cholesterol. Currently she is afebrile, blood pressure 185/81, heart rate 64, respiratory rate 12, oxygen saturation of 97% on room air, she weighs 63.5 kg. BC is unremarkable her platelet count is 256, she does have a elevated calcium at 10.3 corrected is 9.5, AST 41 ALT 42 alk-phos 136 and protein 8.5, COVID-19 PCR done on 07/20 was negative. She had another episode of chest pressure and shortness of breath and underwent echocardiogram in October of 2020. She states that the echocardiogram indicated having in her large a alert at however review of the echo, I did not see anything referring to enlarged aorta. She went to a subsequent Romain protocol stress test in April of this year and that was normal. Patient History Surgical History Fracture of ankle History of appendectomy Family & Social History Family History Brother Age: 71 COPD (chronic obstructive pulmonary disease) High cholesterol Father Diabetes mellitus Heart disease High cholesterol Tobacco & Substance use: Smoking Status Never smoker alcohol intake frequency 0-2 drinks per day Substance Use Type does not use Meds Home Medications and Allergies Home Medications Medication Instructions Recorded Confirmed Type atorvastatin 10 mg tablet 10 mg PO DAILY #90 tab 08/04/18 Rx Allergies Allergy/AdvReac Type Severity Reaction Status Date / Time hydrocodone [HYDROCODONE] Allergy Unknown Verified 07/21/21 04:32 Review of Systems Review of Systems ROS: Yes All systems reviewed with the patient and are negative except as otherwise documented Exam Vital Signs (past 8 hours): - 07/20/21 22:17 07/20/21 22:23 07/20/21 22:25 Temperature 98.3 F Pulse Rate 65 66 72 Respiratory Rate 18 12 Blood Pressure 225/110 H 192/103 H Pulse Oximetry 98 100 100 07/20/21 22:30 07/20/21 23:00 07/20/21 23:30 Temperature Pulse Rate 68 63 63 Respiratory Rate 11 L Blood Pressure 176/98 H 169/80 H 155/72 H Pulse Oximetry 99 97 98 07/21/21 00:09 07/21/21 00:10 07/21/21 00:30 Temperature Pulse Rate 66 67 61 Respiratory Rate 19 Blood Pressure 183/83 H 183/81 H Pulse Oximetry 99 98 97 07/21/21 01:00 Temperature Pulse Rate 64 Respiratory Rate 12 Blood Pressure 185/81 H Pulse Oximetry 97 Oxygen Delivery Method Room Air Narrative Exam Narrative: Gen: Alert, oriented, well-developed 66 y.o. female, NAD HEENT: normocephalic, atraumatic, conjunctiva clear, sclera non-icteric, oral mucosa pink and moist Neck: supple, full ROM, no JVD, trachea is midline Resp: Lungs CTA, non-labored breathing CV: RRR, no murmur or rubs Abd: soft, non-tender, normoactive BTs Skin: no lesions or rashes, dry and intact Neuro: Alert and oriented X 4 w/no focal deficits. Speech clear and coherent. Extremities: trace edema at the sock lines, moves all 4 extremities, is ambulatory, negative Alok?s sign Psyche: normal mood and affect. Objective Labs Result Diagrams: 07/20/21 22:15 07/20/21 22:15 Labs: Laboratory Results - last 24 hr 07/20/21 07/20/21 07/20/21 22:15 22:15 22:15 WBC 6.1 RBC 4.51 Hgb 14.3 Hct 41.1 MCV 91.2 MCH 31.6 MCHC 34.7 RDW 13.0 Plt Count 256 Neut % (Auto) 52.3 Lymph % (Auto) 26.2 [place] % (Auto) 15.3 H Eos % (Auto) 5.7 H Baso % (Auto) 0.5 Neut # (Auto) 3200 Lymph # (Auto) 1600 [place] # (Auto) 900 Eos # (Auto) 300 Baso # (Auto) 0 Sodium 137 Potassium 3.7 Chloride 98 Carbon Dioxide 31 BUN 13 Creatinine 0.70 Estimated GFR > 60.0 BUN/Creatinine Ratio 18.6 Glucose 109 Calcium 10.3 H Magnesium 1.9 Total Bilirubin 0.7 AST 41 H ALT 42 H Alkaline Phosphatase 136 H Total Creatine Kinase 48 CK-MB (CK-2) TNP CK-MB (CK-2) Rel Index TNP Troponin I < 0.012 Total Protein 8.5 H Albumin 5.0 Globulin 3.5 Albumin/Globulin Ratio 1.4 Lipase 74 Assessment & Plan Assessment & Plan narrative: Lorie Ferguson will be observed for further testing to identify a cause for her chest pain. Chest pain r/o ACS, acute, present on admission ? Limited Echo in am ? Pharmacological stress test ? Start ASA 81 mg ? Received nitro X 2 in the ED ? EKG shows no ischemic changes ? Trend troponin X 3, 1st 2 were negative Hypertension ? Start/continue losartan 25 mg p.o. once daily titrate slowly HLD ? Lipid panel, pending ? Start/continue atorvastatin 40 mg po at bedtime Risk stratification ? Fasting lipid panel scheduled for 0500 labs ? A1c pending VTE Prophylaxis: Wells risk score 0 Bilateral SCDs Patient is placed into observation as her stay is not expected to exceed 2 midnights. FEN: IV fluids: saline lock, diet: heart healty, labs: CBC, C/BMP, liver enzymes, Mag, PT/INR Consultants None Dispo: probable discharge to home, possible outpatient referral to cardiology Code status: Full code as discussed with the patient who identifies her , Golden Ferguson her surrogate and POA. [X] I have utilized all available immediate resources to obtain, update, or review of the patient's current medications COVID-19 COVID-19 status: Negative Result date/Date tested (Pos, Neg/Pending): 07/20/21 Scores Wells' Criteria for PE Clinical signs and symptoms of DVT: No PE is #1 Dx or equally likely: No Heart rate > 100: No Immobilization at least 3 days or surg in previous 4 weeks: No History of PE or DVT: No Hemoptysis: No Malignancy w/Treatment within 6 months or palliative: No Wells' PE Score total: 0 Quality VTE Deep Vein Thrombosis/Pulmonary Embolism Present on Admission: No MIPS - Admit I confirm the patient?s Advance Care Plan is present, Code status is documented, Surrogate decision maker is in patient?s record [If Yes, STOP here]: Yes MIPS - DC The patient has current or prior documentation of left ventricular ejection fraction (LVEF) less than 40%, or moderate or severely depressed left ventricular systolic function.: No
--- NOTE | 2021-07-21 04:14 | DI.ECHO.S_ITS ---
[place] [facility]---------+ [facility] +---------+ : : [address] : : : : [phone] : : : : Phone: [phone] Echocardiogram Report + + :Name: KAVIN CAO Study Date: 07/21/2021 Height: 63 in : :[facility] ReadingLocation: Weight: 140 lb : : Gender: Female BSA: 1.7 m2 : :: 1955 Age: 66 yrs BP: 177/85 mmHg: :Reason For Study: CHEST PAIN : :Ordering Physician: MCKENZIE MCKEON Performed By: Heaven Lovett : :Referring: MCKENZIE MCKEON : + + Interpretation Summary The left ventricle is normal in size and wall thickness. The ejection fraction is estimated to be 55-60%. There has been no significant change since the previous exam. There are no focal wall motion abnormalities. The right ventricle is normal in size and function. There is no aortic valve stenosis. The ascending aorta is mild-moderately enlarged. Procedure: A two-dimensional transthoracic echocardiogram with color flow and Doppler was performed in limited views only to assess chest pain. The study quality was technically adequate. Comparison is made with the echocardiogram of 11/02/2019. The patient was in sinus bradycardia with heart rates between 55-60 bpm during the exam. Left Ventricle: The left ventricle is normal in size and wall thickness. The ejection fraction is estimated to be 55-60%. There has been no significant change since the previous exam. There are no focal wall motion abnormalities. Right Ventricle: The right ventricle is normal in size and function. Atria: Both atria are normal in size. Aortic Valve: The aortic valve opens well. There is no aortic valve stenosis. Great Vessels: The ascending aorta is mild-moderately enlarged. The IVC is of normal diameter and collapses greater than 50% with a sniff. This suggests a low right atrial pressure of 3 mm Hg. Pericardium/ Pleura There is no pericardial effusion. There is no pleural effusion. MMode/2D Measurements & Calculations LVIDd: 4.2 cm LVOT diam: 2.0 cm LVIDs: 2.7 cm asc Aorta Diam: 3.9 cm FS: 35.7 % IVSd: 1.0 cm LVPWd: 0.88 cm LV siddiqi. diameter/BSA (cm/m^2): 2.5 LV sys. diameter/BSA (cm/m^2): 1.6 LA A2 area: 14.9 cm2 RA long axis: 4.3 cm LA A4 area: 15.6 cm2 RA area: 15.3 cm2 LA length (vol): 4.7 cm RA vol: 46.1 ml LA vol: 42.2 ml RA : 27.8 ml/m2 LA vol index: 25.4 ml/m2 IVC diam: 1.5 cm RVD1 (basal): 3.0 cm TAPSE: 1.9 cm Doppler Measurements & Calculations Ao V2 max: 121.2 cm/sec LVOT Max Guillermo: 87.4 cm/sec Ao V2 mean: 90.1 cm/sec LV V1 max P.1 mmHg Ao max P.9 mmHg LV V1 VTI: 20.4 cm Ao mean P.5 mmHg KRYSTAL(I,D): 2.4 cm2 Ao V2 VTI: 27.8 cm KRYSTAL(V,D): 2.3 cm2 sev ratio: 0.73 KRYSTAL indexed to BSA (cm^2/m^2): 1.4 SV(LVOT): 65.5 ml Reading Physician:01:09 PM
[2021-07-21 04:51] LABS: Add Manual Diff / Slide Review NO; Basophils Absolute Auto 0 /uL (0-100); Basophils Percent Auto 0.7 % (0-2); Eosinophils Absolute Auto 300 /uL (0-450); Eosinophils Percent Auto 6.7 % (2-4); Hematocrit 35.3 % (36-46); Hemoglobin 12.5 g/dL (12.0-16.0); Lymphocytes Absolute Auto 1400 /uL (1100-4500); Lymphocytes Percent Auto 27.6 % (25-40); Mean Corpuscular HGB Conc 35.4 % (30-36); Mean Corpuscular Hemoglobin 31.8 PG (26-34); Monocytes Absolute Auto 700 /uL (0-900); Monocytes Percent Auto 13.2 % (3-14); Neutrophils Absolute Auto 2700 /uL (1500-7000); Neutrophils Percent Auto 51.8 % (50-75); Platelet Count 206 X10^3/uL (150-400); Red Blood Cell Count 3.93 X10^6/uL (4.0-5.2); White Blood Cell Count 5.1 X10^3/uL (4.5-11.0)
[2021-07-21 04:52] LABS: Creatine Kinase 38 U/L (30-135)
[2021-07-21 04:53] LABS: BUN Creatinine Ratio 15.9 (6-22); Blood Urea Nitrogen 10 mg/dL (7-17); Calcium 9.6 mg/dL (8.4-10.2); Carbon Dioxide 28 mmol/L (22-32); Chloride 101 mmol/L (98-107); Cholesterol 185 mg/dL (140-199); Estimated Glomerular Filt Rate > 60.0 mL/min (>60); Glucose 110 mg/dL (80-110); HDL Cholesterol 82 mg/dL (40-60); HEMOLYSIS < 15 (0-50); LDL Cholesterol Calculated 86 mg/dL (<100); Magnesium 1.7 mg/dL (1.6-2.3); Potassium 3.8 mmol/L (3.4-5.1); Sodium 134 mmol/L (137-145); Triglycerides 87 mg/dL (35-150)
[2021-07-21 05:03] LABS: Hemoglobin A1C% w Est Avg Glu 4.7 % (4.0-6.0)
[2021-07-21 05:04] LABS: Troponin I < 0.012 ng/mL (0.01-0.034)
[2021-07-21] MEDS: LOSARTAN 25 MG TABLET PO (05:44)
--- NOTE | 2021-07-21 09:00 | DI.NM.S_ITS ---
PROCEDURE: NM CHAITANYA PERF SPECT STR ONLY Rest and exercise myocardial perfusion SPECT with gated imaging and ejection fraction RADIOPHARMACEUTICAL: 26.5 mCi Tc-99m sestamibi IV at peak exercise. INDICATIONS: chest pain TECHNIQUE: Radiopharmaceutical was injected at peak stress test, and also at rest. SPECT images were obtained. SPECT myocardial perfusion images were displayed in short axis, horizontal long axis, and vertical long axis views. Gated images were reviewed using [employer] software. COMPARISON: None. CARDIAC STRESS: A standard Romain treadmill exercise tolerance test was performed by the patient under the supervision of an attending staff. The patient exercised for 7 minutes and 47 seconds; functional aerobic impairment (RISHABH) is -27%. Hemodynamic data: There is normal heart rate response to exercise stress. Patient achieved 101% of maximum predicted heart rate at peak exercise. Hypertensive response to exercise (resting BP 134/84mmHg, max BP 202/110mmHg). Symptoms: Patient developed 4/10 chest pain during exercise that resolved during recovery. EKG: No diagnostic EKG changes of ischemia; no ectopy. FINDINGS: Raw data: There is good myocardial labeling by radiotracer. No significant motion artifacts. Left ventricle function: Gated images demonstrate normal left ventricle wall thickening. No segmental wall motion abnormality. The left ventricle resting end-diastolic volume is 63 mL. Left ventricle stress ejection fraction is 92%; normal values are above 45%. Myocardial perfusion: There is normal distribution of activity in the left and right ventricular myocardium. No fixed or reversible perfusion defects. IMPRESSION: Low risk, normal treadmill stress only nuclear study. Non-diagnostic stress test with exercise. 1) No perfusion evidence of ischemia or infarction. 2) Normal left ventricular size, wall motion, and systolic function (EF 92% post stress). 3) No ECG evidence of ischemia with stress. 4) Non-diagnostic chest pain with exercise. 5) Very good exercise capacity (10.1 METs, RISHABH -27%). Target heart rate achieved. 6) Hypertensive response to exercise (resting BP 134/84mmHg, max BP 202/110mmHg). 7) No prior nuclear stress test available for comparison. Dictated by: Stephen Roach MD on 07/21/2021 at 16:12 Approved by: Stephen Roach MD on 07/21/2021 at 16:18
[2021-07-21] MEDS: ASPIRIN EC 81 MG TABLET PO (10:47)
--- NOTE | 2021-07-21 12:34 | PM.DS.1 ---
History of Present Illness History of Present Illness Chief complaint: CHEST PAIN HIGH BLOOD PRESSURE Narrative: Michael Cherry: Lorie Ferguson is a 66-year-old female with hyperlipidemia presented twice today once in the morning of 07/20 and returned tonight with similar complaints of chest pain. During her 1st visit she was hydrated given nitroglycerin and her symptoms seemed resolved. They wanted to keep her in for additional testing however she decided to go home earlier yesterday. She returned at 2100 with a similar feeling of chest pain. She had pressure in her chest that would not let up dry mouth. She did have some nausea and described having heartburn for which she took Pepto-Bismol but the heartburn continued to persist then becoming chest pressure and pain. She denies any shortness of breath, abdominal pain, dysuria, diarrhea or constipation, any edema of her lower extremities, numbing or tingling of her upper or lower extremities. A family history of early cardiac deaths on the part of her grandparents and her father had multiple MIs and diabetes type 2. She is currently being treated for high cholesterol. Currently she is afebrile, blood pressure 185/81, heart rate 64, respiratory rate 12, oxygen saturation of 97% on room air, she weighs 63.5 kg. BC is unremarkable her platelet count is 256, she does have a elevated calcium at 10.3 corrected is 9.5, AST 41 ALT 42 alk-phos 136 and protein 8.5, COVID-19 PCR done on 07/20 was negative. She had another episode of chest pressure and shortness of breath and underwent echocardiogram in October of 2020. She states that the echocardiogram indicated having in her large a alert at however review of the echo, I did not see anything referring to enlarged aorta. She went to a subsequent Romain protocol stress test in April of this year and that was normal. Discharge Providers Provider Date of admission: 07/21/21 03:35 Discharge Date: 07/21/21 Primary care physician: WASHINGTON Burt Discharge provider: Mac Sidhu MD Summary Hospital Course Discharge Diagnosis: 1. Chest pain 2. Hyperlipidemia 3. Hypertension Hospital Course: Ms. Ferguson was admitted after having chest pressure symptoms. She did not have any further symptoms in the hospital. This occurred at rest. She had negative troponins x3. She had no abnormal rhythms on cardiac telemetry. She had an ECHO that appeared similar to prior, she has known aortic regurgitation and mild-moderate enlarged ascending aorta. She had stress test ordered and was pending a read at time of this writing, if a low risk study she will be discharged home. She had mildly elevated cholesterol and her statin dose was increased. She had hypertension which may be contributing to her symptoms, and she was started on losartan. She should follow up with her PCP within one week. Exam Vital Signs (past 8 hours): - 07/21/21 05:00 07/21/21 05:30 07/21/21 06:00 Pulse Rate 58 L 56 L 55 L Respiratory Rate 11 L 10 L 13 Blood Pressure 177/85 H 170/82 H Pulse Oximetry 95 96 07/21/21 06:30 07/21/21 07:00 07/21/21 07:30 Pulse Rate 63 66 65 Respiratory Rate 8 L 17 34 H Blood Pressure Pulse Oximetry 07/21/21 09:26 07/21/21 11:15 07/21/21 12:07 Pulse Rate 63 64 71 Respiratory Rate 26 H 16 Blood Pressure 145/81 H 165/78 H 155/79 H Pulse Oximetry 98 96 100 Oxygen Delivery Method Room Air Narrative Exam Narrative: Gen: no acute distress CV: regular rate and rhythm with no murmurs Abd: soft, non-tender, normal bowel sounds Objective Labs Result Diagrams: 07/21/21 04:29 07/21/21 04:29 Labs: Laboratory Results - last 24 hr 07/20/21 07/20/21 07/20/21 22:15 22:15 22:15 WBC 6.1 RBC 4.51 Hgb 14.3 Hct 41.1 MCV 91.2 MCH 31.6 MCHC 34.7 RDW 13.0 Plt Count 256 Neut % (Auto) 52.3 Lymph % (Auto) 26.2 Mcduffie % (Auto) 15.3 H Eos % (Auto) 5.7 H Baso % (Auto) 0.5 Neut # (Auto) 3200 Lymph # (Auto) 1600 Mcduffie # (Auto) 900 Eos # (Auto) 300 Baso # (Auto) 0 Sodium 137 Potassium 3.7 Chloride 98 Carbon Dioxide 31 BUN 13 Creatinine 0.70 Estimated GFR > 60.0 BUN/Creatinine Ratio 18.6 Glucose 109 Hemoglobin A1c Calcium 10.3 H Magnesium 1.9 Total Bilirubin 0.7 AST 41 H ALT 42 H Alkaline Phosphatase 136 H Total Creatine Kinase 48 CK-MB (CK-2) TNP CK-MB (CK-2) Rel Index TNP Troponin I < 0.012 Total Protein 8.5 H Albumin 5.0 Globulin 3.5 Albumin/Globulin Ratio 1.4 Triglycerides Cholesterol LDL Cholesterol, Calc HDL Cholesterol Lipase 74 07/21/21 07/21/21 07/21/21 04:29 04:29 04:29 WBC 5.1 RBC 3.93 L Hgb 12.5 Hct 35.3 L MCV 90.0 MCH 31.8 MCHC 35.4 RDW 13.0 Plt Count 206 Neut % (Auto) 51.8 Lymph % (Auto) 27.6 Mcduffie % (Auto) 13.2 Eos % (Auto) 6.7 H Baso % (Auto) 0.7 Neut # (Auto) 2700 Lymph # (Auto) 1400 Mcduffie # (Auto) 700 Eos # (Auto) 300 Baso # (Auto) 0 Sodium 134 L Potassium 3.8 Chloride 101 Carbon Dioxide 28 BUN 10 Creatinine 0.63 Estimated GFR > 60.0 BUN/Creatinine Ratio 15.9 Glucose 110 Hemoglobin A1c Calcium 9.6 Magnesium 1.7 Total Bilirubin AST ALT Alkaline Phosphatase Total Creatine Kinase 38 CK-MB (CK-2) TNP CK-MB (CK-2) Rel Index TNP Troponin I < 0.012 Total Protein Albumin Globulin Albumin/Globulin Ratio Triglycerides 87 Cholesterol 185 LDL Cholesterol, Calc 86 HDL Cholesterol 82 H Lipase 07/21/21 04:29 WBC RBC Hgb Hct MCV MCH MCHC RDW Plt Count Neut % (Auto) Lymph % (Auto) Mcduffie % (Auto) Eos % (Auto) Baso % (Auto) Neut # (Auto) Lymph # (Auto) Mcduffie # (Auto) Eos # (Auto) Baso # (Auto) Sodium Potassium Chloride Carbon Dioxide BUN Creatinine Estimated GFR BUN/Creatinine Ratio Glucose Hemoglobin A1c 4.7 Calcium Magnesium Total Bilirubin AST ALT Alkaline Phosphatase Total Creatine Kinase CK-MB (CK-2) CK-MB (CK-2) Rel Index Troponin I Total Protein Albumin Globulin Albumin/Globulin Ratio Triglycerides Cholesterol LDL Cholesterol, Calc HDL Cholesterol Lipase [facility] History Fracture of ankle History of appendectomy Family History Brother Age: 71 COPD (chronic obstructive pulmonary disease) High cholesterol Father Diabetes mellitus Heart disease High cholesterol Social History household members: spouse Smoking Status: Never smoker alcohol intake: current Discharge Plan Discharge Plan Patient Disposition: Home Provider Discharge Comment: Ms. Ferguson was admitted to the hospital with chest pain. She did not have a heart attack. Her stress test showed no evidence of any blockage. Her ECHO was similar to previous ECHO. She was discharged on a baby aspirin and a higher dose of her cholesterol medicine. She was also started on a medication for blood pressure as hers was high, and it may be causing her symptoms. Discharge orders & Medications Prescriptions: New aspirin 81 mg Tablet,Delayed Release (Dr/Ec) 81 mg PO DAILY Qty: 30 RF: 0 losartan 25 mg tablet 25 mg PO DAILY Qty: 30 RF: 0 Changed atorvastatin 10 mg tablet 20 mg PO DAILY Qty: 90 RF: 0 Follow up/Referrals: Laura Paz ARNP [Primary Care Provider] - Diet/Activity/Treatments Diet: Diet as Tolerated Discharge Data Primary Care Provider: Laura Paz Attending Provider: Suzanne Cherry VTE Deep Vein Thrombosis/Pulmonary Embolism Present on Admission: No
== END 2021-07-21 15:38 | disposition home or self-care (01) ==
LOC: ED 07-21 02:56 → AC 07-21 03:36
PROVIDERS: Admitting Provider Nurse Practitioner Family; Emergency Provider Emergency Medicine; PCP Internal Medicine; Referring Provider Emergency Medicine; Visit Provider Nurse Practitioner Family
DX: R07.9 Chest pain, unspecified (principal); E78.5 Hyperlipidemia, unspecified; R06.02 Shortness of breath; I10 Essential (primary) hypertension
CPT/HCPCS: 36415; 71045; 78451; 80048; 80053; 80061; 82550; 83036; 83690; 83735; 84484; 85025; 93005; 93017; 93307; 99284; 99285; G0378; A9502

== ENCOUNTER → 2021-09-12 16:12 | Outpatient (CLI) | payer MEDICARE, OTHER, SELFPAY ==
[2021-07-21 07:10] VITALS: BMI 24.7
--- NOTE | 2021-09-12 16:13 | DI.MG.S_ITS ---
BILATERAL DIGITAL SCREENING MAMMOGRAM 3D/2D WITH CAD: 09/12/2021 CLINICAL: Routine screening. Comparison is made to exams dated: 09/08/2019 mammogram, 06/04/2018 mammogram, and 03/19/2017 mammogram - [facility]. There are scattered fibroglandular elements in both breasts. Current study was also evaluated with a Computer Aided Detection (CAD) system. There are benign calcifications in both breasts. No significant masses, calcifications, or other findings are seen in either breast. There has been no significant interval change. IMPRESSION: BENIGN There is no mammographic evidence of malignancy. A 1 year screening mammogram is recommended. This exam was interpreted at Station ID: [id number]. NOTE: For mammograms, a report in lay terms will be sent to the patient. Approximately 15% of breast malignancies will not be visualized mammographically. In the management of a palpable breast mass, a negative mammogram must not discourage biopsy of a clinically suspicious lesion. Electronically Signed By: Brady Orellana acr/jm:09/12/2021 17:01:39 letter sent: Normal Exam ACR BI-RADS Category 2: Benign Finding(s) 3342F
== END ==
PROVIDERS: PCP Internal Medicine; Referring Provider Internal Medicine; Visit Provider Internal Medicine
DX: Z12.31 Encounter for screening mammogram for malignant neoplasm of breast (principal)
CPT/HCPCS: 77063; 77067

== ENCOUNTER → 2022-02-25 09:42 | Outpatient (CLI) | payer MEDICARE, OTHER, SELFPAY ==
[2021-07-21 07:10] VITALS: BMI 24.7
--- NOTE | 2022-02-25 | DI.US.S_ITS ---
PROCEDURE: US ABDOMEN COMPLETE INDICATIONS: Abnormal levels of other serum enzymes TECHNIQUE: Real-time scanning was performed of the abdominal and retroperitoneal organs, with image documentation. COMPARISON: None. FINDINGS: Liver: The liver demonstrates normal size. The liver demonstrates generalized moderately increased echogenicity. This decreases ultrasound sensitivity for detection of hepatic masses. Likely relates cysts are seen on the right measuring up to 1.2 cm and up to 1 6 cm, respectively. Gallbladder: No findings of gallstones or sludge are seen. The gallbladder wall is not thickened, measuring 3 mm or less. No specific pericholecystic fluid is seen. The sonographic Llanos sign is negative. Biliary ducts: Intrahepatic bile ducts are non-dilated. Extrahepatic bile duct caliber measures 3-4 mm. Normal is 6-7 mm or less in diameter, or 10 mm or less post-cholecystectomy. Pancreas: Visualized portions of the pancreas are sonographically normal. Spleen: Spleen is normal in size and homogeneous in echotexture. Kidneys: Kidneys are normal in size and echotexture. Right kidney measures 10.5 cm long; left kidney measures 9.4 cm long. No hydronephrosis or nephrolithiasis. No solid masses. Aorta: Visualized aorta is normal in caliber at less than 3 cm. Iliacs: Proximal common iliac arteries are normal in caliber at less than 2.5 cm. IVC: Intrahepatic inferior vena cava is patent. Miscellaneous: No free abdominal fluid. IMPRESSION: The liver demonstrates increased echogenicity. This finding is nonspecific, yet it is most commonly attributed to fatty infiltration. Apparent liver cysts incidentally noted. The gallbladder demonstrates a normal sonographic appearance. No biliary dilatation is seen. Dictated by: Kwesi Reyes M.D. on 02/25/2022 at 14:01 Approved by: Kwesi Reyes M.D. on 02/25/2022 at 14:03
== END ==
PROVIDERS: PCP Internal Medicine; Referring Provider Internal Medicine; Visit Provider Internal Medicine
DX: R74.8 Abnormal levels of other serum enzymes (principal); R17 Unspecified jaundice; K76.89 Other specified diseases of liver
CPT/HCPCS: 76700

== ENCOUNTER → 2022-12-21 10:59 | Outpatient (CLI) | payer MEDICARE, OTHER, SELFPAY ==
[2021-07-21 07:10] VITALS: BMI 24.7
--- NOTE | 2022-12-21 | DI.MG.S_ITS ---
BILATERAL DIGITAL SCREENING MAMMOGRAM 3D/2D WITH CAD: 12/21/2022 CLINICAL: Routine screening. Comparison is made to exams dated: 09/12/2021 mammogram, 09/08/2019 mammogram, and 06/04/2018 mammogram - [facility]. There are scattered areas of fibroglandular density in both breasts (category b / 25%-50% glandular tissue). Current study was also evaluated with a Computer Aided Detection (CAD) system. No significant masses, calcifications, or other findings are seen in either breast. There has been no significant interval change. IMPRESSION: NEGATIVE There is no mammographic evidence of malignancy. A 1 year screening mammogram is recommended. Based on the Tyrer Cuzick model (a risk assessment model) the patient's lifetime risk is 6.9% and her 10 year risk is 3.8%. According to the ACR, ACS, and NCCN guidelines, an annual breast MRI exam along with mammogram is recommended if the patient's lifetime risk is 20% or greater. This exam was interpreted at Station ID: [id number]. NOTE: For mammograms, a report in lay terms will be sent to the patient. Approximately 15% of breast malignancies will not be visualized mammographically. In the management of a palpable breast mass, a negative mammogram must not discourage biopsy of a clinically suspicious lesion. Electronically Signed By: John louise/jm:12/21/2022 12:40:40 letter sent: Normal Exam ACR BI-RADS Category 1: Negative 3341F
== END ==
PROVIDERS: PCP Internal Medicine; Referring Provider Internal Medicine; Visit Provider Internal Medicine
DX: Z12.31 Encounter for screening mammogram for malignant neoplasm of breast (principal)
CPT/HCPCS: 77063; 77067

== ENCOUNTER → 2023-05-26 07:35 | Outpatient (CLI) | payer MEDICARE, OTHER, SELFPAY ==
[2021-07-21 07:10] VITALS: BMI 24.7
[2023-05-26 08:44] LABS: Influenza A - CEPHEID Flu A NEGATIVE (NEGATIVE); Influenza B - CEPHEID Flu B NEGATIVE (NEGATIVE); Respiratory Syncytial Virus Negative (Negative)
[2023-05-26 09:29] LABS: COVID-19 CEPHEID 4-PLEX PCR Negative (Negative)
== END ==
PROVIDERS: PCP Internal Medicine; Visit Provider Nurse Practitioner Family
DX: J02.9 Acute pharyngitis, unspecified (principal)
CPT/HCPCS: 0241U; 87070

== ENCOUNTER 2023-06-16 07:39 | Emergency (ER) | payer MEDICARE, OTHER, SELFPAY ==
[2021-07-21 07:10] VITALS: BMI 24.7
[2023-06-16] VITALS (33 sets, daily range): BP systolic 153–194; BP diastolic 71–95; PULSE 60–88; RESP 16–42; TEMP 36; O2SAT 91–100; BMI 24.4
--- NOTE | 2023-06-16 07:48 | DI.RAD.S_ITS ---
PROCEDURE: XR CHEST 1V INDICATIONS: chest pain TECHNIQUE: One view of the chest was acquired. COMPARISON: [facility], CR, XR CHEST 1V, 07/20/2021, 22:25. FINDINGS: Surgical changes and devices: None. Lungs and pleura: Lungs are clear. No pleural effusions or pneumothorax. Mediastinum: Mediastinal contours appear normal. Heart size is normal. Bones and chest wall: No suspicious bony lesions. Overlying soft tissues appear unremarkable. IMPRESSION: Portable chest within normal limits for age. Dictated by: Ita Trevizo M.D. on 06/16/2023 at 8:10 Approved by: Ita Trevizo M.D. on 06/16/2023 at 8:10
[2023-06-16 08:10] LABS: PTT Partial Thromboplastin Tim 35 SECONDS (26-36)
[2023-06-16 08:11] LABS: Alanine Aminotransferase 26 IU/L (<35); Albumin 4.7 g/dL (3.5-5.0); Albumin Globulin Ratio 1.5 (1.0-2.8); Alkaline Phosphatase 145 U/L (38-126); Aspartate Aminotransferase 25 IU/L (14-36); BUN Creatinine Ratio 16.4 (6-22); Blood Urea Nitrogen 11 mg/dL (7-17); Calcium 10.4 mg/dL (8.4-10.2); Carbon Dioxide 28 mmol/L (22-32); Chloride 89 mmol/L (98-107); Creatine Kinase 75 U/L (30-135); Estimated Glomerular Filt Rate > 60 mL/min (>60); Globulin 3.2 g/dL (1.7-4.1); Glucose 102 mg/dL (80-110); HEMOLYSIS < 15 (0-50); Lipase 68 U/L (23-300); Magnesium 1.7 mg/dL (1.6-2.3); Potassium 3.8 mmol/L (3.4-5.1); Sodium 126 mmol/L (137-145); Total Protein 7.9 g/dL (6.3-8.2)
--- NOTE | 2023-06-16 08:14 | ED_ITS ---
HPI - General Adult General Chief complaint: Hypertension Stated complaint: high BP Time Seen by Provider: 06/16/23 08:04 Source: patient Mode of arrival: Ambulatory History of Present Illness HPI narrative: Patient here with . Complains of elevated blood pressure without any chest pain or shortness of breath or headache. Patient states blood pressure is usually 120 -140 systolic. She takes it every day. She takes 50 mg of losartan each morning. She took that 1 hour prior to arrival. Patient states she is had cough cold congestion for the past 1 week. She has been taking lhot-rmg-mxhwznw cold medication which may be elevating her blood pressure. She is taking Coricidin however also taking Mucinex DM. She has been traveling. She returned from [place] a week ago. She was getting ready to travel to [place] this morning. No calf pain no calf swelling. No shortness of breath. Blood pressure noted. She is been on the same blood pressure medication regimen for the past 2 years. She had a normal echocardiogram and stress test 2 years ago. Patient in no distress. Does have a dry cough. Patient did take leftover hydrochlorothiazide 25 mg this morning Related Data Home Medications Medication Instructions Recorded Confirmed atorvastatin 10 mg tablet 25 mg PO DAILY 06/16/23 06/16/23 hydrochlorothiazide 12.5 mg tablet 12.5 mg PO DAILY 06/16/23 06/16/23 Previous Rx's Medication Instructions Recorded aspirin 81 mg tablet,delayed 81 mg PO DAILY #30 tabs 07/21/21 release losartan 25 mg tablet 25 mg PO DAILY #30 tabs 07/21/21 benzonatate 100 mg capsule 100 mg PO TID PRN cough #20 caps 06/16/23 Allergies Allergy/AdvReac Type Severity Reaction Status Date / Time hydrocodone [HYDROCODONE] Allergy Unknown Verified 05/26/23 07:33 Review of Systems Review of Systems Narrative: GENERAL: negative chills, fatigue, malaise, fever, sweats. HEENT: negative sinus pain, ear pain, sore throat positive congestion RESPIRATORY: negative dyspnea, positive cough CARDIOVASCULAR: negative chest pain, palpitations GASTROINTESTINAL: negative nausea, vomiting, abdominal pain : negative dysuria, frequency, hematuria MUSCULOSKELETAL: negative muscle or bony pain SKIN: negative rash, skin lesions NEUROLOGIC: negative weakness, numbness ROS Unobtainable: All systems reviewed & are unremarkable except as noted in HPI and below Patient History Surgical History History of appendectomy Fracture of ankle Family History Brother Age: 73 COPD (chronic obstructive pulmonary disease) High cholesterol Father Diabetes mellitus Heart disease High cholesterol Social History household members: spouse Smoking Status: Never smoker alcohol intake: current Smoking Status: Never smoker alcohol intake frequency: 0-2 drinks per day Substance Use Type: does not use Exam Narrative Exam Narrative: GENERAL: in no distress, not toxic not dyspneic HEAD: Normocephalic. EYES: Pupils equal round ENT: Mucous membranes moist. Injected erythematous nasal mucosa NECK: Trachea midline. CARDIOVASCULAR: Regular rate and rhythm RESPIRATORY: Clear to auscultation. Breath sounds equal bilaterally. No wheezes, rales, or rhonchi. Has a dry cough GASTROINTESTINAL: Abdomen soft, non-tender EXTREMITIES: No gross deformities. BACK: No flank tenderness. NEURO: AOx4. SKIN: Warm and dry PSYCH: Not anxious, is cooperative Initial Vital Signs Initial Vital Signs: Vital Signs Temperature 96.8 F L 06/16/23 07:40 Pulse Rate 73 06/16/23 07:40 Respiratory Rate 20 06/16/23 07:40 Blood Pressure 194/92 H 06/16/23 07:40 Pulse Oximetry 100 06/16/23 07:40 Oxygen Delivery Method Room Air 06/16/23 07:40 Course Orders Ordered: Discontinued Medications Amlodipine Besylate (Amlodipine 5 Mg Tablet) 5 mg PO NOW ONE Stop: 06/16/23 09:50 Last Admin: 06/16/23 09:58 Dose: 5 mg Documented By: LUIS ALBERTO Aspirin (Aspirin 81 Mg Chew Tab) 324 mg PO NOW ONE Stop: 06/16/23 07:49 Last Admin: 06/16/23 07:55 Dose: Not Given Documented By: NEYMAR Hydralazine HCl (Hydralazine 20 Mg/Ml Vial) 5 mg IV NOW ONE Stop: 06/16/23 11:05 Last Admin: 06/16/23 11:13 Dose: 5 mg Documented By: CHERYL Hydralazine HCl (Hydralazine 25 Mg Tablet) 25 mg PO NOW ONE Stop: 06/16/23 11:52 Last Admin: 06/16/23 12:19 Dose: 25 mg Documented By: DOROTHY Losartan Potassium (Losartan 25 Mg Tablet) 25 mg PO NOW ONE Stop: 06/16/23 08:35 Last Admin: 06/16/23 08:43 Dose: 25 mg Documented By: CHERYL Losartan Potassium (Losartan 25 Mg Tablet) 25 mg PO NOW ONE Stop: 06/16/23 09:42 Last Admin: 06/16/23 09:58 Dose: 25 mg Documented By: LUIS ALBERTO Vital Signs Vital signs: Vital Signs - 8 hr 06/16/23 10:30 06/16/23 10:30 06/16/23 10:37 Pulse Rate 65 72 Respiratory Rate 38 H 18 Blood Pressure 192/95 H Pulse Oximetry 99 99 06/16/23 10:37 06/16/23 11:00 06/16/23 11:01 Pulse Rate 63 Respiratory Rate 18 Blood Pressure 190/90 H 179/79 H Pulse Oximetry 99 06/16/23 11:01 06/16/23 11:13 06/16/23 11:15 Pulse Rate 65 65 Respiratory Rate 33 H Blood Pressure 161/72 H 161/79 H Pulse Oximetry 100 06/16/23 11:15 06/16/23 11:19 06/16/23 11:20 Pulse Rate 64 70 Respiratory Rate 40 H 27 H Blood Pressure 175/79 H Pulse Oximetry 98 99 06/16/23 11:20 06/16/23 11:25 06/16/23 11:25 Pulse Rate 71 69 Respiratory Rate 16 29 H Blood Pressure 174/85 H Pulse Oximetry 97 99 06/16/23 11:30 06/16/23 11:30 06/16/23 11:35 Pulse Rate 71 67 Respiratory Rate 27 H 24 Blood Pressure 172/76 H Pulse Oximetry 99 100 06/16/23 11:35 06/16/23 11:40 06/16/23 11:40 Pulse Rate 68 Respiratory Rate 32 H Blood Pressure 155/75 H 173/84 H Pulse Oximetry 99 06/16/23 11:45 06/16/23 11:45 06/16/23 11:50 Pulse Rate 67 Respiratory Rate 32 H Blood Pressure 161/83 H 155/81 H Pulse Oximetry 100 06/16/23 11:50 06/16/23 11:55 06/16/23 11:55 Pulse Rate 67 67 Respiratory Rate 31 H 28 H Blood Pressure 153/80 H Pulse Oximetry 99 98 06/16/23 12:00 06/16/23 12:01 06/16/23 12:01 Pulse Rate 69 69 Respiratory Rate 20 Blood Pressure 163/72 H 162/72 H Pulse Oximetry 99 06/16/23 12:01 06/16/23 12:05 06/16/23 12:05 Pulse Rate 70 69 Respiratory Rate Blood Pressure 153/71 H Pulse Oximetry 91 98 06/16/23 12:10 06/16/23 12:10 Pulse Rate 68 Respiratory Rate 18 Blood Pressure 166/79 H Pulse Oximetry 98 Medical Decision Making Lab Data 06/16/23 07:48 06/16/23 07:48 Labs: Lab Results 06/16/23 06/16/23 Range/Units 07:48 08:13 WBC 9.9 (4.5-11.0) X10^3/uL RBC 4.48 (4.0-5.2) X10^6/uL Hgb 14.0 (12.0-16.0) g/dL Hct 39.0 (36-46) % MCV 87.0 (80-100) fL MCH 31.2 (26-34) PG MCHC 35.8 (30-36) % RDW 12.8 (11.6-14.8) % Plt Count 283 (150-400) X10^3/uL Neut % (Auto) 69.0 (50-75) % Lymph % (Auto) 15.8 L (25-40) % Gage % (Auto) 10.2 (3-14) % Eos % (Auto) 4.2 H (2-4) % Baso % (Auto) 0.8 (0-2) % Neut # (Auto) 6800 (2203-6061) /uL Lymph # (Auto) 1600 (5225-9435) /uL Gage # (Auto) 1000 H (0-900) /uL Eos # (Auto) 400 (0-450) /uL Baso # (Auto) 100 (0-100) /uL PT 11.0 (10.1-12.7) SECONDS INR 1.0 (0.9-1.3) APTT 35 (26-36) SECONDS Sodium 126 L (137-145) mmol/L Potassium 3.8 (3.4-5.1) mmol/L Chloride 89 L (98-107) mmol/L Carbon Dioxide 28 (22-32) mmol/L BUN 11 (7-17) mg/dL Creatinine 0.67 (0.52-1.04) mg/dL Estimated GFR > 60 (>60) mL/min BUN/Creatinine Ratio 16.4 (6-22) Glucose 102 (80-110) mg/dL Calcium 10.4 H (8.4-10.2) mg/dL Magnesium 1.7 (1.6-2.3) mg/dL Total Bilirubin 1.0 (0.2-1.3) mg/dL AST 25 (14-36) IU/L ALT 26 (<35) IU/L Alkaline Phosphatase 145 H (38-126) U/L Total Creatine Kinase 75 (30-135) U/L Troponin I < 0.012 (0.01-0.034) ng/mL Total Protein 7.9 (6.3-8.2) g/dL Albumin 4.7 (3.5-5.0) g/dL Globulin 3.2 (1.7-4.1) g/dL Albumin/Globulin Ratio 1.5 (1.0-2.8) Lipase 68 (23-300) U/L Chlamy pneumoniae PCR Not detected (Not Detect) Adenovirus (PCR) Not detected (Not Detect) B.parapertussis DNA PCR Not detected (Not Detecte) Coronavirus OC43 (PCR) Not detected (Not Detect) Coronavirus HKU1 (PCR) Not detected (Not Detect) Coronavirus 229E (PCR) Not detected (Not Detect) SARS-CoV-2 (PCR) Negative Not detected (Negative) Coronavirus NL63 (PCR) Not detected (Not Detect) Human Metapneumovir PCR Not detected (Not Detect) Influenza Type A (PCR) Not detected (Not Detect) Influenza Type B (PCR) Not detected (Not Detect) M. pneumoniae (PCR) Not detected (Not Detect) Parainfluenza 1 (PCR) Not detected (Not Detect) Parainfluenza 2 (PCR) Not detected (Not Detect) Parainfluenza 3 (PCR) Not detected (Not Detect) Parainfluenza 4 (PCR) Not detected (Not Detect) RSV (PCR) Not detected (Not Detect) Entero/Rhino (PCR) Not detected (Not Detect) Urine Dip Bedside Urine Glucose Negative Bedside Urine Bilirubin - Negative Bedside Urine Ketone - Negative Urine Specific [place] 1.01 Bedside Urine Occult Blood - Negative Bedside Urine pH 6.5 Bedside Urine Protein - Negative Bedside Urine Urobilinogen - Negative Bedside Urine Nitrite - Negative Bedside Urine Leukocytes - Negative Esterase Point of care testing: Urine Dip Bedside Urine Glucose Negative Bedside Urine Bilirubin - Negative Bedside Urine Ketone - Negative Urine Specific Orem 1.01 Bedside Urine Occult Blood - Negative Bedside Urine pH 6.5 Bedside Urine Protein - Negative Bedside Urine Urobilinogen - Negative Bedside Urine Nitrite - Negative Bedside Urine Leukocytes - Negative Esterase Imaging Data Chest x-ray: Radiologist's Impression: [address] [address] XRay Report Signed Patient: Lorie Ferguson MR#: [id number] : 1955 Acct:[id number] Age/Sex: 67 / F Date of Service: 06/16/23 Loc: ED Accession Number: [id number] Procedure: XR chest 1V Ordering Provider: Reggie Cornell MD PROCEDURE: XR CHEST 1V INDICATIONS: chest pain TECHNIQUE: One view of the chest was acquired. COMPARISON: [facility], , XR CHEST 1V, 07/20/2021, 22:25. FINDINGS: Surgical changes and devices: None. Lungs and pleura: Lungs are clear. No pleural effusions or pneumothorax. Mediastinum: Mediastinal contours appear normal. Heart size is normal. Bones and chest wall: No suspicious bony lesions. Overlying soft tissues appear unremarkable. IMPRESSION: Portable chest within normal limits for age. Dictated by: Ita Trevizo M.D. on 06/16/2023 at 8:10 Approved by: Ita Trevizo M.D. on 06/16/2023 at 8:10 [facility] Narrative Medical decision making narrative: Patient here with . Complains of elevated blood pressure without any chest pain or shortness of breath or headache. Patient states blood pressure is usually 120 -140 systolic. She takes it every day. She takes 50 mg of losartan each morning. She took that 1 hour prior to arrival. Patient states she is had cough cold congestion for the past 1 week. She has been taking gyee-yuq-zztcolh cold medication which may be elevating her blood pressure. She is taking Coricidin however also taking Mucinex DM. She has been traveling. She returned from [place] a week ago. She was getting ready to travel to [place] this morning. No calf pain no calf swelling. No shortness of breath. Blood pressure noted. She is been on the same blood pressure medication regimen for the past 2 years. She had a normal echocardiogram and stress test 2 years ago. Patient in no distress. Does have a dry cough. Patient did take leftover hydrochlorothiazide 25 mg this morning After history and exam CBC CMP troponin EKG chest x-ray respiratory panel [facility] CC: Elevated blood pressure/upper respiratory infection Complicating co-morbidities: Taking qrlf-bjh-exsebit cough medication/high blood pressure Data collected from: Patient and Medical records reviewed: No recent visit for this complaint Differential considered: Includes but not limited to medication reaction, essential hypertension, viral syndrome Exam documented above, pertinent findings include: Dry cough Lab Test results independently reviewed as above. Pertinent findings: INR 1.0 sodium 126 potassium 3.8 chloride 189 bicarb 28 BUN 11 creatinine 0.67 GFR greater than 60 Independently reviewed EKG sinus bradycardia rate [address] elevation or depression Imaging studies independently reviewed: Chest x-ray no acute finding Consultations: 9:52 a.m.. Spoke with primary care provider, Laura Paz, she would like patient to have Norvasc 5 mg here. She will send prescription in for 5 mg daily to her pharmacy. Patient should go home on her usual losartan 50 mg once daily. She will see patient next week for follow-up. Next Wednesday. Patient to call today to make appointment. Blood pressure likely due to rauy-pbg-cscrjgk cold medication, she agrees. 11:[address] Magno Paz, works with Laura Paz, recommends giving patient oral hydralazine 25 or 50 mg orally. Patient's blood pressure is improving 155/81, discharge patient home and he will see patient in the office in 2 days instead of next Wednesday. He will see patient this Wednesday. Treatments: Amlodipine losartan hydralazine Re-evaluations: 11:54 a.m.. Blood pressure has improved 155/81. Patient states feels much better. She does desire Tessalon Perles prescription. She does desire discharge home. I did discuss with her follow up plans for this Wednesday and not next Wednesday. She will may cause for changes to Dr. Magno Paz. Nontoxic at discharge. Return precautions reviewed with her. She desires discharge home. Discussion: Appropriate for discharge home. Patient's blood pressure likely reacting to wbwq-fmr-wqzoean cold medication. She did respond to blood pressure medications here. Feeling much better at time of discharge. Nontoxic. Return precautions reviewed with her. She has close follow up with primary care in 2 days. She desires discharge home. Blood pressure will likely improve once the cold medication metabolizes further Diagnosis: Medication reaction, hypertension Discharge Plan Departure Patient Disposition: Home Clinical Impression: Hypertension Qualifiers: Hypertension type: unspecified Qualified Code(s): I10 - Essential (primary) hypertension Adverse reaction to qhby-dna-btigufj medication Qualifiers: Encounter type: initial encounter Qualified Code(s): T50.905A - Adverse effect of unspecified drugs, medicaments and biological substances, initial encounter Instructions: DI for High Blood Pressure Activity Restrictions/Additional Instructions: See Dr. Magno Paz this Wednesday, call the office today to inform he is expecting you. Please cancel next Wednesday appointment. Do not not not take any hwmy-imf-hzmteom cold medications. Prescription for Tesprudencio Perles has been sent to your pharmacy for cough. Please do start new blood pressure medication your provider has sent to your pharmacy. Please do continue your current losartan dose. Return if worse if any questions or concerns Prescriptions: New benzonatate 100 mg capsule 100 mg PO TID PRN (Reason: cough) Qty: 20 0RF No Action aspirin 81 mg Tablet,Delayed Release (Dr/Ec) 81 mg PO DAILY Qty: 30 0RF losartan 25 mg tablet 25 mg PO DAILY Qty: 30 0RF hydrochlorothiazide 12.5 mg tablet 12.5 mg PO DAILY Patient Comments: Pt doubled dose due to recent high BPs 06/15/23 atorvastatin 10 mg tablet 25 mg PO DAILY Referrals: Laura Paz ARNP [Primary Care Provider] - Stand Alone Forms: Patient Portal/API
[2023-06-16 08:23] LABS: Troponin I < 0.012 ng/mL (0.01-0.034)
[2023-06-16 08:25] LABS: COVID19 -Nasal RAPID Negative (Negative)
[2023-06-16] MEDS: LOSARTAN 25 MG TABLET PO ×2 (08:43→09:58)
[2023-06-16 08:51] LABS: Add Manual Diff / Slide Review NO; Basophils Absolute Auto 100 /uL (0-100); Basophils Percent Auto 0.8 % (0-2); Eosinophils Absolute Auto 400 /uL (0-450); Eosinophils Percent Auto 4.2 % (2-4); Lymphocytes Absolute Auto 1600 /uL (1100-4500); Lymphocytes Percent Auto 15.8 % (25-40); Mean Corpuscular HGB Conc 35.8 % (30-36); Mean Corpuscular Hemoglobin 31.2 PG (26-34); Monocytes Absolute Auto 1000 /uL (0-900); Monocytes Percent Auto 10.2 % (3-14); Neutrophils Absolute Auto 6800 /uL (1500-7000); Platelet Count 283 X10^3/uL (150-400); Red Blood Cell Count 4.48 X10^6/uL (4.0-5.2); Red Cell Distribution Width 12.8 % (11.6-14.8); White Blood Cell Count 9.9 X10^3/uL (4.5-11.0)
[2023-06-16 09:21] LABS: Adenovirus Not Detected (Not Detect); B. parapertussis Not Detected (Not Detecte); Bordetella pertussis Not Detected (Not Detect); Chlamydophila pneumoniae Not Detected (Not Detect); Coronavirus 229E Not Detected (Not Detect); Coronavirus HKU1 Not Detected (Not Detect); Coronavirus NL 63 Not Detected (Not Detect); Coronavirus OC43 Not Detected (Not Detect); Human Metapneumovirus Not Detected (Not Detect); Human Rhinovirus/Enterovirus Not Detected (Not Detect); Influenza A Not Detected (Not Detect); Influenza B Not Detected (Not Detect); Mycoplasma pneumoniae Not Detected (Not Detect); Parainfluenza Virus 1 Not Detected (Not Detect); Parainfluenza Virus 2 Not Detected (Not Detect); Parainfluenza Virus 3 Not Detected (Not Detect); Parainfluenza Virus 4 Not Detected (Not Detect); Respiratory Syncytial Virus Not Detected (Not Detect); SARS- CoV-2 Not Detected (Not Detecte)
[2023-06-16] MEDS: AMLODIPINE 5 MG TABLET PO (09:58)
[2023-06-16] MEDS: HYDRALAZINE 20 MG/ML VIAL 5 MG IV (11:13)
[2023-06-16] MEDS: HYDRALAZINE 25 MG TABLET PO (12:19)
== END 2023-06-16 12:22 | disposition home or self-care (01) ==
PROVIDERS: Emergency Provider Emergency Medicine; PCP Internal Medicine
DX: I10 Essential (primary) hypertension (principal); T50.905A Adverse effect of unspecified drugs, medicaments and biological substances, initial encounter; R07.9 Chest pain, unspecified; Z20.822 Contact with and (suspected) exposure to COVID-19
CPT/HCPCS: 36415; 71045; 80053; 81003; 82550; 83690; 83735; 84484; 85025; 85610; 85730; 87633; 87635; 93005; 96374; 99284; C9803; J0360

== ENCOUNTER 2024-04-24 10:23 | Emergency (ER) | payer MEDICARE, OTHER, SELFPAY ==
[2021-07-21 07:10] VITALS: BMI 24.7
[2024-04-24] VITALS (12 sets, daily range): BP systolic 164–199; BP diastolic 80–101; PULSE 55–67; RESP 11–17; TEMP 36.6; O2SAT 99–100
--- NOTE | 2024-04-24 10:42 | DI.RAD.S_ITS ---
PROCEDURE: XR CHEST 1V INDICATIONS: chest pain TECHNIQUE: One view of the chest was acquired. COMPARISON: [facility], CR, XR CHEST 1V, 06/16/2023, 7:55. [facility], CR, XR CHEST 1V, 07/20/2021, 22:25. FINDINGS: Surgical changes and devices: None. Lungs and pleura: Lungs are clear. No pleural effusions or pneumothorax. Mediastinum: Mediastinal contours appear normal. Heart size is normal. Bones and chest wall: No suspicious bony lesions. Overlying soft tissues appear unremarkable. IMPRESSION: No acute cardiopulmonary abnormality is seen. Dictated by: Ziggy Nicholson M.D. on 04/24/2024 at 12:14 Approved by: Ziggy Nicholson M.D. on 04/24/2024 at 12:19
--- NOTE | 2024-04-24 10:55 | EKG_ITS ---
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
[2024-04-24 11:25] LABS: Add Manual Diff / Slide Review NO; Basophils Absolute Auto 0 /uL (0-100); Basophils Percent Auto 1.2 % (0-2); Eosinophils Absolute Auto 300 /uL (0-450); Eosinophils Percent Auto 8.4 % (2-4); Hematocrit 38.7 % (36-46); Hemoglobin 13.7 g/dL (12.0-16.0); Lymphocytes Absolute Auto 800 /uL (1100-4500); Lymphocytes Percent Auto 19.2 % (25-40); Mean Corpuscular HGB Conc 35.5 % (30-36); Mean Corpuscular Hemoglobin 31.6 PG (26-34); Mean Corpuscular Volume 89.1 fL (80-100); Monocytes Absolute Auto 500 /uL (0-900); Monocytes Percent Auto 12.4 % (3-14); Neutrophils Absolute Auto 2400 /uL (1500-7000); Neutrophils Percent Auto 58.8 % (50-75); Platelet Count 255 X10^3/uL (150-400); Red Blood Cell Count 4.34 X10^6/uL (4.0-5.2); Red Cell Distribution Width 12.3 % (11.6-14.8); White Blood Cell Count 4.1 X10^3/uL (4.5-11.0)
[2024-04-24 11:37] LABS: Bacteria Urine None Seen; Culture Indicated Urine Specimen Cultured; RBC Urine 0-1/HPF (0-5/HPF); Squamous Epithelial Cell Urine None Seen (0-5/HPF); Urine Volume 10mL (spun); WBC Urine None Seen (0-5/HPF)
[2024-04-24 11:38] LABS: INR 0.9 (0.9-1.3); Prothrombin Time 10.6 SECONDS (9.4-12.5)
[2024-04-24 11:41] LABS: PTT Partial Thromboplastin Tim 39 SECONDS (25.1-36.5)
[2024-04-24 11:42] LABS: Alanine Aminotransferase 20 IU/L (<35); Albumin 4.7 g/dL (3.5-5.0); Albumin Globulin Ratio 1.7 (1.0-2.8); Alkaline Phosphatase 106 U/L (38-126); Aspartate Aminotransferase 25 IU/L (14-36); BUN Creatinine Ratio 13.6 (6-22); Bilirubin Total 1.5 mg/dL (0.2-1.3); Blood Urea Nitrogen 9 mg/dL (7-17); Calcium 9.6 mg/dL (8.4-10.2); Carbon Dioxide 24 mmol/L (22-32); Chloride 91 mmol/L (98-107); Creatine Kinase 62 U/L (30-135); Estimated Glomerular Filt Rate > 60 mL/min (>60); Globulin 2.7 g/dL (1.7-4.1); Glucose 98 mg/dL (80-110); HEMOLYSIS < 15 (0-50); Lipase 47 U/L (23-300); Magnesium 1.8 mg/dL (1.6-2.3); Potassium 4.3 mmol/L (3.4-5.1); Sodium 123 mmol/L (137-145); Total Protein 7.4 g/dL (6.3-8.2)
[2024-04-24 11:54] LABS: NT-proBNP (BNP-Adult 18+) 205 pg/mL (<125); Troponin I < 0.012 ng/mL (0.01-0.034)
[2024-04-24] MEDS: PHENAZOPYRIDINE 100 MG TABLET 200 MG PO (15:23)
--- NOTE | 2024-04-24 16:37 | ED.GENADULT ---
HPI - General Adult General Chief complaint: Hypertension Stated complaint: High blood pressure/Possible UTI Time Seen by Provider: 04/24/24 15:45 Source: patient Mode of arrival: Ambulatory History of Present Illness HPI narrative: 68-year-old female with history of hypertension and recent dysuria symptoms, was treated for bladder infection about 2 weeks ago, having completed a course of 7 days antibiotics, with persisting dysuria, she is taking [id number] azo that did not seem to be helping, does recall having a pelvic examination with a female primary care provider, no vulvar lesions reported, no evidence of yeast infection per patient report. She has history of high blood pressure, for which she takes losartan blood pressure medications, recently increased from 50 mg dose to 100 mg dose. She had some chest discomfort when her blood pressure was elevated. This morning her blood pressure was elevated, she was here for initially for blood pressure elevation concerns. Related Data Home Medications Medication Instructions Recorded Confirmed atorvastatin 10 mg tablet 25 mg PO DAILY 06/16/23 06/16/23 hydrochlorothiazide 12.5 mg tablet 12.5 mg PO DAILY 06/16/23 06/16/23 Previous Rx's Medication Instructions Recorded aspirin 81 mg tablet,delayed 81 mg PO DAILY #30 tabs 07/21/21 release losartan 25 mg tablet 25 mg PO DAILY #30 tabs 07/21/21 benzonatate 100 mg capsule 100 mg PO TID PRN cough #20 caps 06/16/23 Allergies Allergy/AdvReac Type Severity Reaction Status Date / Time hydrocodone [HYDROCODONE] Allergy Unknown Verified 04/24/24 10:44 Review of Systems Review of Systems Narrative: see HPI Patient History Surgical History History of appendectomy Fracture of ankle Family History Brother Age: 73 COPD (chronic obstructive pulmonary disease) High cholesterol Father Diabetes mellitus Heart disease High cholesterol Social History household members: spouse Smoking Status: Never smoker alcohol intake: current Smoking Status: Never smoker alcohol intake frequency: 0-2 drinks per day Substance Use Type: does not use Exam Narrative Exam Narrative: GENERAL: Well-developed patient, in mild distress. HEAD: Atraumatic. Normocephalic. EYES: Pupils equal round and reactive. Extraocular motions intact. No scleral icterus. No injection or drainage. ENT: Nose without bleeding, purulent drainage. Throat without erythema, tonsillar hypertrophy or exudate. Airway patent. NECK: Trachea midline. Non tender CARDIOVASCULAR: Regular rate and rhythm without murmurs, gallops, or rubs. RESPIRATORY: Clear to auscultation. Breath sounds equal bilaterally. No wheezes, rales, or rhonchi. GASTROINTESTINAL: Abdomen soft, non-tender, nondistended. EXTREMITIES: No edema or joint tenderness. BACK: Nontender without deformity or crepitance. No flank tenderness. NEURO: AOx3. SKIN: No rash or erythema of visible areas Initial Vital Signs Initial Vital Signs: Vital Signs Temperature 98 F 04/24/24 10:39 Pulse Rate 64 04/24/24 10:39 Respiratory Rate 17 04/24/24 10:39 Blood Pressure 199/101 H 04/24/24 10:39 Pulse Oximetry 100 04/24/24 10:39 Oxygen Delivery Method Room Air 04/24/24 10:39 Course Orders Ordered: Discontinued Medications Phenazopyridine HCl (Phenazopyridine 100 Mg Tablet) 200 mg PO NOW ONE Stop: 04/24/24 15:04 Last Admin: 04/24/24 15:23 Dose: 200 mg Documented By: DEWEY Phenazopyridine HCl (Phenazopyridine 100 Mg Tablet) 200 mg PO NOW ONE Stop: 04/24/24 17:24 Last Admin: 04/24/24 17:28 Dose: Not Given Documented By: [facility] Sodium Chloride (Sodium Chloride 0.9% 100 Ml) 250 ml IV NOW ONE Stop: 04/24/24 16:50 Last Admin: 04/24/24 17:08 Dose: 250 ml Documented By: Maria Del Rosario Vital Signs Vital signs: Vital Signs - 8 hr 04/24/24 13:51 04/24/24 14:00 04/24/24 14:00 Pulse Rate 64 59 L Respiratory Rate 12 11 L Blood Pressure 170/82 H Pulse Oximetry 100 99 04/24/24 14:30 04/24/24 14:30 04/24/24 14:56 Pulse Rate 60 67 Respiratory Rate 12 Blood Pressure 182/89 H Pulse Oximetry 100 99 04/24/24 14:56 04/24/24 15:00 04/24/24 15:28 Pulse Rate 60 Respiratory Rate Blood Pressure 198/91 H 174/83 H Pulse Oximetry 100 04/24/24 15:28 04/24/24 15:30 04/24/24 15:30 Pulse Rate 61 55 L Respiratory Rate Blood Pressure 164/80 H Pulse Oximetry 100 100 04/24/24 16:00 04/24/24 16:07 04/24/24 16:07 Pulse Rate 63 59 L Respiratory Rate Blood Pressure 171/80 H Pulse Oximetry 100 100 04/24/24 16:30 04/24/24 16:30 04/24/24 17:00 Pulse Rate 60 Respiratory Rate Blood Pressure 168/81 H 185/88 H Pulse Oximetry 100 04/24/24 17:00 Pulse Rate 60 Respiratory Rate Blood Pressure Pulse Oximetry 100 Medical Decision Making Lab Data Lab results reviewed: Yes I reviewed the patient's lab results. 04/24/24 11:05 04/24/24 11:05 Labs: Lab Results 04/24/24 04/24/24 Range/Units 10:45 11:05 WBC 4.1 L (4.5-11.0) X10^3/uL RBC 4.34 (4.0-5.2) X10^6/uL Hgb 13.7 (12.0-16.0) g/dL Hct 38.7 (36-46) % MCV 89.1 (80-100) fL MCH 31.6 (26-34) PG MCHC 35.5 (30-36) % RDW 12.3 (11.6-14.8) % Plt Count 255 (150-400) X10^3/uL Neut % (Auto) 58.8 (50-75) % Lymph % (Auto) 19.2 L (25-40) % [place] % (Auto) 12.4 (3-14) % Eos % (Auto) 8.4 H (2-4) % Baso % (Auto) 1.2 (0-2) % Neut # (Auto) 2400 (3777-5252) /uL Lymph # (Auto) 800 L (2381-7089) /uL [place] # (Auto) 500 (0-900) /uL Eos # (Auto) 300 (0-450) /uL Baso # (Auto) 0 (0-100) /uL PT 10.6 (9.4-12.5) SECONDS INR 0.9 (0.9-1.3) APTT 39 H (25.1-36.5) SECONDS Sodium 123 L (137-145) mmol/L Potassium 4.3 (3.4-5.1) mmol/L Chloride 91 L (98-107) mmol/L Carbon Dioxide 24 (22-32) mmol/L BUN 9 (7-17) mg/dL Creatinine 0.66 (0.52-1.04) mg/dL Estimated GFR > 60 (>60) mL/min BUN/Creatinine Ratio 13.6 (6-22) Glucose 98 (80-110) mg/dL Calcium 9.6 (8.4-10.2) mg/dL Magnesium 1.8 (1.6-2.3) mg/dL Total Bilirubin 1.5 H (0.2-1.3) mg/dL AST 25 (14-36) IU/L ALT 20 (<35) IU/L Alkaline Phosphatase 106 (38-126) U/L Total Creatine Kinase 62 (30-135) U/L Troponin I < 0.012 (0.01-0.034) ng/mL NT-Pro-B Natriuret Pep 205 H (<125) pg/mL Total Protein 7.4 (6.3-8.2) g/dL Albumin 4.7 (3.5-5.0) g/dL Globulin 2.7 (1.7-4.1) g/dL Albumin/Globulin Ratio 1.7 (1.0-2.8) Lipase 47 (23-300) U/L Urine RBC 0-1/hpf (0-5/HPF) Urine WBC None seen (0-5/HPF) Ur Squamous Epith Cells None seen (0-5/HPF) Urine Bacteria None seen (None) Ur Culture Indicated? Specimen cultured Vol Urine Centrifuged 10ml (spun) Ur Chlamydia DNA (PCR) Not detected N gonorrhoeae DNA (PCR) Not detected Urine Dip Bedside Urine Glucose Negative Bedside Urine Bilirubin - Negative Bedside Urine Ketone - Negative Urine Specific [place] 1.005 Bedside Urine Occult Blood - Negative Bedside Urine pH 8.0 Bedside Urine Protein - Negative Bedside Urine Urobilinogen - Negative Bedside Urine Nitrite - Negative Bedside Urine Leukocytes +/- 15 Esterase Point of care testing: Urine Dip Bedside Urine Glucose Negative Bedside Urine Bilirubin - Negative Bedside Urine Ketone - Negative Urine Specific [place] 1.005 Bedside Urine Occult Blood - Negative Bedside Urine pH 8.0 Bedside Urine Protein - Negative Bedside Urine Urobilinogen - Negative Bedside Urine Nitrite - Negative Bedside Urine Leukocytes +/- 15 Esterase ECG Data Interpretation: Normal sinus rhythm with rate of 62, no obvious ST segment elevation or depression changes. T-wave inversion lead 3 noted, upright in leads 2 and F contiguous inferior leads. WA 206, QRS 82, QTC 414. Discharge Plan Departure Patient Disposition: Home Clinical Impression: Hypertension, Dysuria, Hyponatremia Instructions: DI for Dysuria -- Adult Activity Restrictions/Additional Instructions: Elevated blood pressure and some chest discomfort, blood pressure improved without specific treatment here in the emergency department. Continue taking your losartan at higher 100 mg strength daily dose that was recently increased. Sometimes additional blood pressure medications may need to be added, discuss further with your regular provider. EKG and blood testing not suggestive of heart attack at this time. Also you had painful urination, recent urinary tract infection and pelvic examination in clinic showing no obvious vaginal cause of symptoms, urinalysis today looked normal. Urine chlamydia gonorrhea PCR sent, clinically do not suspect infection but least from a workup standpoint if it is sent in negative can help follow up consultants with ongoing symptoms. Some symptoms can be gynecological related, consider gynecology referral. Some symptoms could be Urology related, consider urology referral, sometimes cystoscopy in the bladder as needed to look for causes of persisting symptoms unexplained by infection or other causes. Consider use of Pyridium for the next couple of days to see if that provides some relief at least in the short term. Low-sodium noted, hydrochlorothiazide on your medication list, sodium was 123 today, decreased from prior, he seemed to be aware of having a low sodium problems in the past, he felt okay today, did not want to have further workup of this today, consider stopping your hydrochlorothiazide and substituting with some other medication that is not known to affect the sodium level. Recheck symptoms in your blood pressure with your regular doctor in the next couple of days. Return to this/nearest emergency department for any change worsening symptoms or any concerns prior Prescriptions: No Action aspirin 81 mg Tablet,Delayed Release (Dr/Ec) 81 mg PO DAILY Qty: 30 0RF losartan 25 mg tablet 25 mg PO DAILY Qty: 30 0RF hydrochlorothiazide 12.5 mg tablet 12.5 mg PO DAILY Patient Comments: Pt doubled dose due to recent high BPs 06/15/23 atorvastatin 10 mg tablet 25 mg PO DAILY benzonatate 100 mg capsule 100 mg PO TID PRN (Reason: cough) Qty: 20 0RF Referrals: Laura Paz ARNP [Primary Care Provider] - Stand Alone Forms: Patient Portal/API
[2024-04-24] MEDS: SODIUM CHLORIDE 0.9% 100 ML 250 ML IV (17:08)
[2024-04-24 19:01] LABS: Urine N gonorrhoeae NOT DETECTED
[2024-04-24 19:11] LABS: Urine Chlamydia NOT DETECTED
== END 2024-04-24 17:41 | disposition home or self-care (01) ==
PROVIDERS: Emergency Provider Emergency Medicine; PCP Internal Medicine
DX: I10 Essential (primary) hypertension (principal); R07.9 Chest pain, unspecified; R30.0 Dysuria; E87.1 Hypo-osmolality and hyponatremia
CPT/HCPCS: 36415; 71045; 80053; 81003; 81015; 82550; 83690; 83735; 83880; 84484; 85025; 85610; 85730; 87086; 87491; 87591; 93005; 99284

== ENCOUNTER 2024-05-07 20:23 | Emergency (ER) | payer OTHER, MEDICARE, SELFPAY ==
[2021-07-21 07:10] VITALS: BMI 24.7
[2024-05-07 20:32] VITALS: BP 175/66; PULSE 61; RESP 16; TEMP 36.4; O2SAT 99; BMI 24.7
[2024-05-07 21:01] LABS: Appearance Urine UA CLEAR; Bilirubin Urine UA NEGATIVE (NEGATIVE); Color Urine UA YELLOW; Ketones Urine UA NEGATIVE (NEGATIVE); Leukocyte Esterase Urine UA NEGATIVE (NEGATIVE); Occult Blood Urine UA NEGATIVE (Negative); Protein Urine UA NEGATIVE (Negative); Specific Gravity Urine UA <=1.005 (1.000-1.035)
[2024-05-07 21:15] LABS: Bacteria Urine Occasional (0-1); Culture Indicated Urine Cult Not Indicated; RBC Urine None Seen (0-5/HPF); Squamous Epithelial Cell Urine 1-5 /HPF (0-5/HPF); Urine Volume 10mL (spun); WBC Urine None Seen (0-5/HPF)
--- NOTE | 2024-05-07 21:40 | ED_ITS ---
HPI - Female Genitourinary General Chief complaint: Urogenital-Female Stated complaint: HBP, arms,legs vaginal area pain Time Seen by Provider: 05/07/24 20:51 Source: patient Mode of arrival: Family Vehicle History of Present Illness HPI Narrative: 68-year-old female presents for evaluation sharp stabbing vaginal pain along with migratory throbbing pains in her arms and legs. Patient states that she has had ongoing evaluation with her primary care doctor for these pains and no definitive cause has been found. Patient initially thought that it was a urinary tract infection, but after evaluation in her primary's office she was started on estradiol cream, which patient has been using for the last several days. Patient reports otherwise normal speculum exam at PCP's office. Patient states it she has not been able to manage the pain at home despite taking Tylenol and ibuprofen and gabapentin. Denies history or concern for STIs. Related Data Home Medications Medication Instructions Recorded Confirmed atorvastatin 20 mg tablet 20 mg PO DAILY 05/05/24 05/05/24 gabapentin 100 mg capsule 100 mg PO DAILY 05/05/24 05/05/24 Previous Rx's Medication Instructions Recorded aspirin 81 mg tablet,delayed 81 mg PO DAILY #30 tabs 07/21/21 release losartan 25 mg tablet 25 mg PO DAILY #30 tabs 07/21/21 phenazopyridine 200 mg tablet 200 mg PO TID PRN pain #10 tabs 04/24/24 (Pyridium) sodium,potassium,mag sulfates 17.5 See Rx Instructions PO .COMPLEX 05/05/24 gram-3.13 gram-1.6 gram oral soln #354 mL (Suprep Bowel Prep Kit) tramadol 50 mg tablet 50 mg PO TID PRN pain #8 tabs 05/08/24 Allergies Allergy/AdvReac Type Severity Reaction Status Date / Time hydrocodone [HYDROCODONE] Allergy Unknown Verified 05/05/24 10:27 Patient History Medical History Rotator cuff injury UTI (urinary tract infection) (~04/2024) Surgical History History of appendectomy Fracture of ankle Family History Brother Age: 74 COPD (chronic obstructive pulmonary disease) High cholesterol Cancer of kidney Father Diabetes mellitus Heart disease High cholesterol Hypertension Gallstones alcohol intake frequency: 0-2 drinks per day Substance Use Type: does not use Exam Initial Vital Signs Initial Vital Signs: Vital Signs Temperature 97.6 F 05/07/24 20:32 Pulse Rate 61 05/07/24 20:32 Respiratory Rate 16 05/07/24 20:32 Blood Pressure 175/66 H 05/07/24 20:32 Pulse Oximetry 99 05/07/24 20:32 Oxygen Delivery Method Room Air 05/07/24 20:32 Const: Awake, alert, no acute distress, nontoxic appearing Cardiac: regular rate, regular rhythm RESP: unlabored, clear bilaterally, no wheezing GI: Soft, nontender, nondistended : external genitalia normal, no lesions, no discharge, no reproducible tenderness Skin: Warm, Dry, intact, no rashes Neuro: AO x3, CN II-XII grossly intact, moves all extremities Course Orders Ordered: Discontinued Medications Tramadol HCl (Tramadol 50 Mg Prepack) 1 bottle MISC DIRECTED ONE Stop: 05/07/24 21:41 Last Admin: 05/07/24 21:49 Dose: 1 bottle Documented By: KHANH Vital Signs Vital signs: Vital Signs - 8 hr 05/07/24 20:32 Temperature 97.6 F Pulse Rate 61 Respiratory Rate 16 Blood Pressure 175/66 H Pulse Oximetry 99 Oxygen Delivery Method Room Air MDM - Female Genitourinary Lab Data Labs: Lab Results 05/07/24 Range/Units 20:52 Urine Color Yellow Urine Appearance Clear Urine pH 7.0 (4.5-8.0) Ur Specific [place] <=1.005 (1.000-1.035) Urine Protein Negative (Negative) Urine Glucose (UA) TNP Urine Ketones Negative (NEGATIVE) Urine Occult Blood Negative (Negative) Urine Nitrate TNP Urine Bilirubin Negative (NEGATIVE) Urine Urobilinogen 1.0 (0.2) E.U./dL Ur Leukocyte Esterase Negative (NEGATIVE) Urine RBC None seen (0-5/HPF) Urine WBC None seen (0-5/HPF) Ur Squamous Epith Cells 1-5 /hpf (0-5/HPF) Urine Bacteria Occasional (0-1) (None) Ur Culture Indicated? Cult not indicated Vol Urine Centrifuged 10ml (spun) MDM Narrative Medical decision making narrative: Well-appearing patient with unexplained pains in her extremities and vagina. Patient states that she has had laboratory work done with her PCP office for her arm and leg pains that has been inconclusive, she was pending a neurology referral for further investigation of these pains. On external evaluation of patient's genitalia there are no lesions, patient points to the area where she was experiencing pain but there is no reproducible tenderness in his area, no discharge. No explaination for patient's symptoms. Given rx for short amount of pain medication. Recommended OBGYN f/u if she continues to experience these uncontrolled vaginal pains. Discharge Plan Departure Patient Disposition: Home Clinical Impression: Vaginal pain Instructions: Vulvodynia Activity Restrictions/Additional Instructions: Take Tylenol and ibuprofen with your gabapentin for pain. If these do not control your symptoms then the medications provided may help provide some relief. I would recommend following up with OBGYN if you continue to experience these vaginal pains. pharmacy closed, changed to [facility] Prescriptions: New tramadol 50 mg tablet 50 mg PO TID PRN (Reason: pain) Qty: 8 0RF No Action sodium,potassium,mag sulfates [Suprep Bowel Prep Kit] 17.5-3.13-1.6 gram recon soln See Rx Instructions PO .COMPLEX Qty: 354 0RF Rx Instructions: take as directed by Physician atorvastatin 20 mg tablet 20 mg PO DAILY gabapentin 100 mg capsule 100 mg PO DAILY Rx Instructions: Pt. takes 2 tablets daily aspirin 81 mg Tablet,Delayed Release (Dr/Ec) 81 mg PO DAILY Qty: 30 0RF losartan 25 mg tablet 25 mg PO DAILY Qty: 30 0RF phenazopyridine [Pyridium] 200 mg tablet 200 mg PO TID PRN (Reason: pain) Qty: 10 0RF Referrals: Laura Paz ARNP [Primary Care Provider] - Stand Alone Forms: Patient Portal/API
[2024-05-07] MEDS: TRAMADOL 50 MG PREPACK 1 BOTTLE MISC (21:49)
[2024-05-07 21:54] VITALS: BP 171/70; PULSE 52; RESP 16; O2SAT 96
== END 2024-05-07 21:54 | disposition home or self-care (01) ==
PROVIDERS: Emergency Provider Emergency Medicine; PCP Internal Medicine
DX: R10.2 Pelvic and perineal pain (principal)
CPT/HCPCS: 81001; 87086; 99281; 99283

== ENCOUNTER 2024-05-13 11:22 | Emergency (ER) | payer OTHER, MEDICARE, SELFPAY ==
[2021-07-21 07:10] VITALS: BMI 24.7
[2024-05-13 11:26] VITALS: BP 186/91; PULSE 61; RESP 17; TEMP 36.4; O2SAT 98
--- NOTE | 2024-05-13 11:42 | PC.NURSE ---
Educated patient to stay and speak to provider after discussion with her regarding future appointments including with primary on Wednesday. Patient initially in distress over symptoms but after speaking to me stated she wanted to go home and not wait for a room. Patient stated she actually felt better after speaking to me regarding the care plan in place with primary and future appointments she has and stated she does not want stronger narcotics for her symptoms of pain. Tried again to have patient stay to see provider, patient stated she wanted to follow up with primary and did feel better about situation. Patient opted to C from triage.
--- NOTE | 2024-05-13 19:26 | ED.RECABL ---
HPI - Recheck/Abnormal Lab/Rx General Chief Complaint: Recheck/Abnormal Lab/Rx Stated Complaint: Body pain, Mild chest pain Source: patient Mode of arrival: Ambulatory History of Present Illness HPI narrative: Patient left without seeing provider Related Data Home Medications Medication Instructions Recorded Confirmed atorvastatin 20 mg tablet 20 mg PO DAILY 05/05/24 05/05/24 gabapentin 100 mg capsule 100 mg PO DAILY 05/05/24 05/05/24 Previous Rx's Medication Instructions Recorded aspirin 81 mg tablet,delayed 81 mg PO DAILY #30 tabs 07/21/21 release losartan 25 mg tablet 25 mg PO DAILY #30 tabs 07/21/21 phenazopyridine 200 mg tablet 200 mg PO TID PRN pain #10 tabs 04/24/24 (Pyridium) sodium,potassium,mag sulfates 17.5 See Rx Instructions PO .COMPLEX 05/05/24 gram-3.13 gram-1.6 gram oral soln #354 mL (Suprep Bowel Prep Kit) tramadol 50 mg tablet 50 mg PO TID PRN pain #8 tabs 05/08/24 Allergies Allergy/AdvReac Type Severity Reaction Status Date / Time hydrocodone [HYDROCODONE] AdvReac Unknown Vomiting Verified 05/13/24 11:26 Patient History Medical History Rotator cuff injury UTI (urinary tract infection) (~04/2024) Surgical History History of appendectomy Fracture of ankle Family History Brother Age: 74 COPD (chronic obstructive pulmonary disease) High cholesterol Cancer of kidney Father Diabetes mellitus Heart disease High cholesterol Hypertension Gallstones Social History marital status: household members: spouse lives independently: Yes occupational status: employed Previous occupational history: Self-Employed Smoking Status: Never smoker alcohol intake: never substance use type: does not use Smoking Status: Never smoker alcohol intake frequency: 0-2 drinks per day Substance Use Type: does not use Exam Initial Vital Signs Initial Vital Signs: Vital Signs Temperature 97.6 F 05/13/24 11:26 Pulse Rate 61 05/13/24 11:26 Respiratory Rate 17 05/13/24 11:26 Blood Pressure 186/91 H 05/13/24 11:26 Pulse Oximetry 98 05/13/24 11:26 Oxygen Delivery Method Room Air 05/13/24 11:26 Discharge Plan Departure Patient Disposition: Left Without Being Seen Clinical Impression: Patient left after triage Prescriptions: No Action sodium,potassium,mag sulfates [Suprep Bowel Prep Kit] 17.5-3.13-1.6 gram recon soln See Rx Instructions PO .COMPLEX Qty: 354 0RF Rx Instructions: take as directed by Physician atorvastatin 20 mg tablet 20 mg PO DAILY gabapentin 100 mg capsule 100 mg PO DAILY Rx Instructions: Pt. takes 2 tablets daily aspirin 81 mg Tablet,Delayed Release (Dr/Ec) 81 mg PO DAILY Qty: 30 0RF losartan 25 mg tablet 25 mg PO DAILY Qty: 30 0RF phenazopyridine [Pyridium] 200 mg tablet 200 mg PO TID PRN (Reason: pain) Qty: 10 0RF tramadol 50 mg tablet 50 mg PO TID PRN (Reason: pain) Qty: 8 0RF
== END 2024-05-13 11:45 | disposition left against medical advice (07) ==
PROVIDERS: Emergency Provider Emergency Medicine; PCP Internal Medicine
CPT/HCPCS: 99281

== ENCOUNTER → 2024-05-16 06:51 | Outpatient (CLI) | payer MEDICARE, OTHER, SELFPAY ==
[2021-07-21 07:10] VITALS: BMI 24.7
--- NOTE | 2024-05-16 06:56 | DI.CT.S_ITS ---
PROCEDURE: CT CHEST ABD PEL W CON INDICATIONS: FATTY LIVER,SOB,PELVIC PAIN,NAUSEA,ELEVATED BILI TECHNIQUE: After the administration of intravenous contrast, 5 mm thick sections acquired from the lung apices to the symphysis. 5 mm coronal and sagittal reformats were performed, with additional 7 mm MIP reformats through the lungs. For radiation dose reduction, the following was used: automated exposure control, adjustment of mA and/or kV according to patient size. COMPARISON: None. FINDINGS: Image quality: Excellent. CHEST: Lower Neck: No enlarged lymph nodes. Thyroid: No thyroid nodules which require sonographic follow up, per consensus guidelines. Axillae: No enlarged lymph nodes. Chest Wall: Unremarkable. Lungs and Pleura: No pneumothorax or pleural effusions. Solid, noncalcified pulmonary nodule in the left lower lobe measuring 2 mm (2/89). Left lower lobe subpleural solid, noncalcified pulmonary nodule measuring 4 mm (2/174). Right lower lobe solid, noncalcified pulmonary nodule measuring 3 mm (2/112). Patent central airways. Heart: Heart size is normal. No pericardial effusion. Thoracic Vessels: The aorta and pulmonary arteries demonstrate normal size. Mediastinum and [place]: No enlarged lymph nodes. Esophagus: No wall thickening. Small hiatal hernia. ABDOMEN: Liver: No solid mass. Simple cyst in the hepatic dome (4/42). Additional cystic lesion in segment 4A/4B measuring 1.6 x 1.4 cm with Hounsfield unit of 18 (4/53). Additional subcentimeter hypodensities are too small to characterize (for example, 4/48, 50, 58). Gallbladder: No radiopaque gallstones or wall thickening. Biliary ducts: No biliary dilation. Pancreas: No ductal dilation. Spleen: Size is within normal limits. Adrenal Glands: No adrenal nodules. Mild nonspecific thickening of the left adrenal gland. Kidneys and Ureters: No hydronephrosis or nephrolithiasis bilaterally. Symmetric enhancement. No solid mass. No complex renal cystic lesion which requires follow up. Stomach and Bowel: Stomach is decompressed, limiting evaluation, but appears grossly normal. Small and large bowel is normal in caliber, without obstruction. Appendectomy. Colonic diverticulosis, without diverticulitis. Peritoneum: No abnormal intraperitoneal fluid. No free air. Ventral Wall: Tiny fat containing umbilical hernia. Abdominal Nodes: No retroperitoneal or mesenteric adenopathy by size criteria. Vessels: Aorta and inferior vena cava are normal in size. Minimal calcification of the abdominal aorta. Mesenteric vessels are patent. Patent portal, splenic and bilateral renal veins. PELVIS: Pelvic Organs: Unremarkable. Bladder: No bladder wall thickening, accounting for underdistention. Pelvic Nodes: No enlarged lymph nodes. Miscellaneous: No inguinal hernias are seen. Bones: No aggressive osseous abnormality. No acute fractures. Moderate multilevel degenerative changes of the spine. IMPRESSION: 1. No acute pathology in the abdomen or pelvis. 2. A few scattered pulmonary nodules measuring up to 4 mm. Per Fleischner guidelines, patient is low risk, no additional follow-up needed. If patient is high risk, consider repeat CT chest in 12 months. 3. Cystic lesion in liver segment 4A/4B with Hounsfield unit of 18 likely represents a proteinaceous cyst. Consider a targeted ultrasound of the right upper quadrant for further evaluation. 4. Colonic diverticulosis without diverticulitis. Nonobstructive bowel with normal colonic stool burden. Fleischner Society criteria for lung nodule followup. Nodule size (mm)Low-risk patientHigh-risk patient<=4No follow-up needed.Follow-up at 12 months; if no change, no further follow-up.>0-0Pjuadw-gh CT at 12 months; if no change, no further follow-up needed.Initial follow-up CT at 6-12 months, then 18-24 months if no change.>6-8Initial follow-up CT at 6-12 months, then 18-24 months if no change.Initial follow-up CT at 3-6 months, then 9-12 months and 24 months if no change.>8Follow-up CT at 3,9 and 24 months or PET and/or biopsySame as for low-risk patientsNon-solid (ground-glass) or partly solid nodules may require longer follow-up to exclude indolent adenocarcinoma. Dictated by: Arleen Wood M.D. on 05/16/2024 at 11:34 Approved by: Arleen Wood M.D. on 05/16/2024 at 17:16
== END ==
PROVIDERS: PCP Internal Medicine; Referring Provider Internal Medicine; Visit Provider Internal Medicine
DX: K76.89 Other specified diseases of liver (principal); R91.8 Other nonspecific abnormal finding of lung field; K57.90 Diverticulosis of intestine, part unspecified, without perforation or abscess without bleeding; K76.0 Fatty (change of) liver, not elsewhere classified; R06.02 Shortness of breath; R10.2 Pelvic and perineal pain; R30.0 Dysuria; R11.0 Nausea
CPT/HCPCS: 71260; 74177; Q9967

== ENCOUNTER 2024-07-21 13:36 | Day surgery (SDC) | payer MEDICARE, OTHER, SELFPAY ==
[2021-07-21 07:10] VITALS: BMI 24.7
--- NOTE | 2024-07-21 | PATH_ITS ---
[facility] Accession Number: [id number] No. of containers..01 Tissue . 01 Material submitted: . colon - RANDOM COLON . 01 Diagnosis: RANDOM COLON, BIOPSY: Colonic mucosa with no diagnostic abnormality. Negative for active, chronic, and microscopic colitis. Negative for dysplasia and malignancy. [facility] 07/24/2024 1045 Local . 01 Electronically signed: . Hayden Oliva MD, PhD, Pathologist NPI- [id number] . 01 Gross description: . Received in formalin, labeled with two patient identifiers and designated random colon biopsies, and consists of six -brown, irregular soft tissues ranging from 0.1 cm up to 0.3 cm in greatest dimension, which are entirely submitted in cassette A1. ([id number]) /FRR 07/22/2024 1403 Local . 01 Pathologist provided ICD-10: R19.4 . 01 CPT . 646123 Specimen Comment: A courtesy copy of this report has been sent to [phone] Performed at: [address] [address] [address], [place], [place] [id number] MD Alton Stephen MD Phone: [phone]
[2024-07-21 14:01] VITALS: BP 163/92; PULSE 84; RESP 16; TEMP 36.2; O2SAT 99
--- NOTE | 2024-07-21 14:17 | PM.HP.1 ---
History of Present Illness History of Present Illness Date Patient Seen: 07/21/24 Time Patient Seen: 14:34 Chief complaint: Dx Colonoscopy w/poss bx Narrative: 69-year-old woman with altered bowel function here for diagnostic colonoscopy. Please refer to H&P from April 25 for further detail. Over the interval reports improvement improvement in bowel function. [facility] Medical History Rotator cuff injury UTI (urinary tract infection) (~04/2024) Surgical History History of appendectomy Fracture of ankle Family History Brother Age: 74 COPD (chronic obstructive pulmonary disease) High cholesterol Cancer of kidney Father Diabetes mellitus Heart disease High cholesterol Hypertension Gallstones Social History marital status: household members: spouse lives independently: Yes occupational status: employed Previous occupational history: Self-Employed Smoking Status: Never smoker alcohol intake: never substance use type: does not use Meds Home Medications and Allergies Home Medications Medication Instructions Recorded Confirmed Type aspirin 81 mg tablet,delayed 81 mg PO DAILY #30 tabs 07/21/21 07/21/24 Rx release losartan 25 mg tablet 25 mg PO DAILY #30 tabs 07/21/21 07/21/24 Rx phenazopyridine 200 mg tablet 200 mg PO TID PRN pain #10 tabs 04/24/24 06/15/24 Rx (Pyridium) atorvastatin 20 mg tablet 20 mg PO DAILY 05/05/24 07/21/24 History gabapentin 100 mg capsule 100 mg PO DAILY 05/05/24 07/21/24 History sodium,potassium,mag sulfates 17.5 See Rx Instructions PO .COMPLEX 05/05/24 06/15/24 Rx gram-3.13 gram-1.6 gram oral soln #354 mL (Suprep Bowel Prep Kit) tramadol 50 mg tablet 50 mg PO TID PRN pain #8 tabs 05/08/24 06/15/24 Rx ondansetron 4 mg disintegrating 4 mg PO Q8H PRN 06/15/24 06/15/24 History tablet Allergies Allergy/AdvReac Type Severity Reaction Status Date / Time hydrocodone [HYDROCODONE] AdvReac Unknown Vomiting Verified 07/21/24 13:57 Exam Vital Signs (past 8 hours): - 07/21/24 14:01 Temperature 97.1 F L Pulse Rate 84 Respiratory Rate 16 Blood Pressure 163/92 H Pulse Oximetry 99 Oxygen Delivery Method Room Air Oxygen Delivery Method Room Air Narrative Exam Narrative: General adult woman alert oriented no acute distress Chest nonlabored respiration Extremities warm well perfused Assessment & Plan Assessment and plan (1) Altered bowel function: Status: Acute Assessment & Plan narrative: Diagnostic colonoscopy recommended for evaluation of altered bowel function. Technical details were discussed. Risks, benefits, alternatives explained. Risks including but not limited to myocardial infarction, aspiration, bleeding, pain, missed lesion, incomplete examination, need for further radiographic studies, intestinal injury, and need for major abdominal surgery were discussed. All questions were answered to their satisfaction, and they are in agreement with this plan. Time-Based Coding :: [TOTAL MINUTES] spent with patient and on the chart (including review of chart, obtaining history, exam, reviewing outside data, placing orders, documenting exam and treatment plan, and counseling patient) on [DATE].
--- NOTE | 2024-07-21 14:39 | P.OP.COLON_ITS ---
Operative Date/Time/Diagnoses Date of procedure: 07/21/24 Time of procedure: 14:39 Pre-op diagnosis: Altered bowel function Procedure & Clinicians Study performed: Diagnostic colonoscopy Same procedure as scheduled: Yes Indications: Altered bowel function Surgeon: Melquiades Giraldo Procedure Notes Procedure in detail: The history and physical was performed/updated and the patient is ASA class is 2. The procedure was discussed in detail with the patient. Potential risks complications including infection, bleeding, missed diagnosis, perforation, need for surgery, and were explained. Their questions were answered and informed consent was obtained. Patient was brought to the procedure room and placed standard monitoring equipment. The patient's vital signs were monitored continuously throughout the entire procedure. Prior to starting time-out was performed. The patient was placed in the left lateral recumbent position. Procedural sedation was administered by anesthesia. Examination began with a thorough inspection of the perianal area there was no evidence of fissures, fistulae, external hemorrhoids or cutaneous malignancy. The colonoscopy scope was then placed into the anal canal and was advanced to the cecum, which was identified by the ileocecal valve, the appendiceal orifice and the confluence of the taenia. The scope was then slowly withdrawn examining colon thoroughly in all directions, irrigating it of any residual stool. The scope was retroflexed within the rectum. Random colonic biopsies were taken throughout using the forceps The patient tolerated the procedure well. They will be discharged once criteria are met. The prep was of good/excellent quality. The withdrawl time was 7 minutes. FINDINGS * Unremarkable colonoscopy. Normal healthy colonic mucosa without mass or polyps. Specimen(s): other (Random colonic biopsy) Impression: Normal colonoscopy Post-procedure Plan for aftercare: We will notify with biopsy results Disposition: same day surgery
[2024-07-21 15:07] VITALS: BP 134/74; PULSE 72; RESP 16; TEMP 36.2; O2SAT 98
[2024-07-21 15:12] VITALS: BP 135/75; PULSE 83; RESP 16; TEMP 36.2; O2SAT 98
[2024-07-21 15:30] VITALS: BP 135/78; PULSE 70; RESP 16; TEMP 36.2; O2SAT 98
== END 2024-07-21 15:33 | disposition home or self-care (01) ==
PROVIDERS: PCP Internal Medicine; Referring Provider Surgery; Visit Provider Surgery
PROC: 0DJD8ZZ Inspection of Lower Intestinal Tract, Via Natural or Artificial Opening Endoscopic (ICD-10-PCS; CPT 45378; principal; 2024-07-21 14:45)
DX: R19.4 Change in bowel habit (principal)
CPT/HCPCS: 45380; J2704

== ENCOUNTER → 2024-10-19 16:49 | Outpatient (CLI) | payer MEDICARE, OTHER, SELFPAY ==
[2021-07-21 07:10] VITALS: BMI 24.7
--- NOTE | 2024-10-19 16:50 | DI.MG.S_ITS ---
BILATERAL DIGITAL SCREENING MAMMOGRAM 3D/2D WITH CAD: 10/19/2024 CLINICAL: Routine screening. Comparison is made to exams dated: 12/21/2022 mammogram, 09/12/2021 mammogram, and 09/08/2019 mammogram - [facility]. There are scattered areas of fibroglandular density (category b / 25%-50% glandular tissue). Current study was also evaluated with a Computer Aided Detection (CAD) system. No significant masses, calcifications, or other findings are seen in either breast. There has been no significant interval change. IMPRESSION: NEGATIVE There is no mammographic evidence of malignancy. A 1 year screening mammogram is recommended. Based on the Tyrer Cuzick model (a risk assessment model) the patient's lifetime risk is 6.2% and her 10 year risk is 3.9%. According to the ACR, ACS, and NCCN guidelines, an annual breast MRI exam along with mammogram is recommended if the patient's lifetime risk is 20% or greater. This exam was interpreted at Station ID: [id number]. NOTE: For mammograms, a report in lay terms will be sent to the patient. Approximately 15% of breast malignancies will not be visualized mammographically. In the management of a palpable breast mass, a negative mammogram must not discourage biopsy of a clinically suspicious lesion. Electronically Signed By: Ethan weller/jm:10/21/2024 14:36:17 letter sent: Normal Exam ACR BI-RADS Category 1: Negative
== END ==
PROVIDERS: PCP Internal Medicine; Referring Provider Internal Medicine; Visit Provider Internal Medicine
DX: Z12.31 Encounter for screening mammogram for malignant neoplasm of breast (principal)
CPT/HCPCS: 77063; 77067

== ENCOUNTER 2025-05-15 10:02 | Emergency (ER) | payer MEDICARE, OTHER, SELFPAY ==
[2021-07-21 07:10] VITALS: BMI 24.7
[2025-05-15] VITALS (9 sets, daily range): BP systolic 166–186; BP diastolic 74–86; PULSE 49–63; RESP 9–24; TEMP 36.6; O2SAT 90–100; BMI 25.6
--- NOTE | 2025-05-15 10:07 | ED.GENADULT ---
HPI - General Adult General Chief complaint: Extremity Problem,Nontraumatic Stated complaint: Pain in left arm, Time Seen by Provider: 05/15/25 10:06 History of Present Illness HPI narrative: Patient is a 69-year-old female with a past medical history of hyperlipidemia, hypertension, comes into the ED from home for evaluation of left arm pain, states it has been ongoing persistent for the past several weeks, states that she went to see her primary care doctor was given some pain medication muscle relaxers without improvement, she states that she called Orthopedic surgery as well as primary care doctor however given persistent symptoms was instructed to come into the ED. She denies any trauma or falls denies any numbness weakness tingling to the upper extremity, not on any blood thinners no other symptoms at this time Related Data Home Medications ?Medication ?Instructions ?Recorded ?Confirmed atorvastatin 20 mg tablet 20 mg PO DAILY 05/05/24 07/21/24 gabapentin 100 mg capsule 100 mg PO DAILY 05/05/24 07/21/24 ondansetron 4 mg disintegrating 4 mg PO Q8H PRN 06/15/24 06/15/24 tablet Previous Rx's ?Medication ?Instructions ?Recorded aspirin 81 mg tablet,delayed 81 mg PO DAILY #30 tabs 07/21/21 release losartan 25 mg tablet 25 mg PO DAILY #30 tabs 07/21/21 phenazopyridine 200 mg tablet 200 mg PO TID PRN pain #10 tabs 04/24/24 (Pyridium) tramadol 50 mg tablet 50 mg PO TID PRN pain #8 tabs 05/08/24 Allergies Allergy/AdvReac Type Severity Reaction Status Date / Time hydrocodone (HYDROCODONE) AdvReac Unknown Vomiting Verified 07/21/24 13:57 Review of Systems Review of Systems Narrative: General: Denies fever, chills, weight loss HEENT: Denies headache, eye drainage, eye irritation, head trauma, sore throat, voice change Cardiovascular: Denies any chest pain, palpitations, tachycardia Respiratory: Denies any shortness of breath, cough, wheeze, stridor GI/: Denies any abdominal pain, nausea, vomiting, diarrhea, bright red blood per rectum, melanotic stools, urinary frequency, urinary retention, dysuria, hematuria MSK: Positive for left tricep pain Skin: Denies any rashes, lesions, discoloration Neuro: Denies any headache, lightheadedness, dizziness, fainting, weakness Psych: Denies SI/HI Patient History Medical History Rotator cuff injury UTI (urinary tract infection) (~04/2024) Surgical History History of appendectomy Fracture of ankle Family History Brother Age: 74 COPD (chronic obstructive pulmonary disease) High cholesterol Cancer of kidney Father Diabetes mellitus Heart disease High cholesterol Hypertension Gallstones Social History marital status: household members: spouse lives independently: Yes occupational status: employed Previous occupational history: Self-Employed Smoking Status: Never smoker alcohol intake: never substance use type: does not use alcohol intake frequency: holidays/special occasions only Exam Narrative Exam Narrative: General: Cooperative, well-developed, not in acute distress HEENT: Normocephalic, atraumatic, PERRLA, normal sclera, eyelids normal Neck: Active full range of motion, atraumatic Chest: Normal to inspection, negative crepitus, no overlying erythema ecchymosis Respiratory: Normal respiratory effort, not in acute respiratory distress, clear to auscultation bilaterally negative cough, wheeze, tachypnea, rhonchi, rales Cardiology: Regular rate rhythm negative gallop, murmur, rubs GI/: No tenderness to palpation, soft, non rigid, normal to inspection, exam deferred MSK: Full active range of motion in all 4 extremities, atraumatic, no tenderness to palpation of any bony prominences, patient does have reproducible tenderness to palpation of the tricep, no overlying erythema ecchymosis neurovascularly intact Skin: No rashes or lesions noted Neuro: Alert awake oriented x3, moves all 4 extremities spontaneously, cranial nerves intact, able to answer all questions appropriately follows commands appropriately Psych: Cooperative, negative suicidal or homicidal ideations Initial Vital Signs Initial Vital Signs: Vital Signs Pulse Oximetry 90 L 05/15/25 10:07 Course Orders Ordered: ED Orders 05/15/25 10:15 US periph venous up extrem lt Stat XR chest 1V Stat EKG-12 Lead Stat 05/15/25 10:55 Complete Blood Count AUTO DIFF Stat Comprehensive Metabolic Panel Stat Lipase Stat MAG [Magnesium] Stat Troponin & CK Cardiac Panel Stat Discontinued Medications Morphine Sulfate (Morphine 4 Mg/Ml Inj) 2 mg IV NOW ONE Stop: 05/15/25 12:02 Last Admin: 05/15/25 12:08 Dose: 2 mg Documented By: DOTTY Ondansetron HCl (Ondansetron 4 Mg/2 Ml Inj) 4 mg IV NOW ONE Stop: 05/15/25 12:02 Last Admin: 05/15/25 12:08 Dose: 4 mg Documented By: DOTTY Vital Signs Vital signs: Vital Signs - 8 hr 05/15/25 10:07 05/15/25 10:08 05/15/25 10:08 Temperature Pulse Rate 58 L Respiratory Rate Blood Pressure 183/84 H Pulse Oximetry 90 L 99 Oxygen Delivery Method 05/15/25 10:20 05/15/25 10:30 05/15/25 10:31 Temperature 98 F Pulse Rate 63 54 L Respiratory Rate 16 16 Blood Pressure 183/84 H 166/74 H Pulse Oximetry 100 100 Oxygen Delivery Method Room Air 05/15/25 10:31 05/15/25 11:00 05/15/25 11:30 Temperature Pulse Rate 54 L 55 L 53 L Respiratory Rate 20 24 15 Blood Pressure Pulse Oximetry 99 99 99 Oxygen Delivery Method 05/15/25 12:00 05/15/25 12:13 05/15/25 12:13 Temperature Pulse Rate 49 L 52 L Respiratory Rate 9 L 21 Blood Pressure 186/86 H Pulse Oximetry 98 100 Oxygen Delivery Method Medical Decision Making Lab Data 05/15/25 10:55 05/15/25 10:55 Labs: Lab Results 05/15/25 Range/Units 10:55 WBC 6.0 (4.5-11.0) X10^3/uL RBC 3.96 L (4.0-5.2) X10^6/uL Hgb 12.4 (12.0-16.0) g/dL Hct 35.5 L (36-46) % MCV 89.5 (80-100) fL MCH 31.2 (26-34) PG MCHC 34.8 (30-36) % RDW 13.0 (11.6-14.8) % Plt Count 194 (150-400) X10^3/uL Neut % (Auto) 73.7 (50-75) % Lymph % (Auto) 9.6 L (25-40) % [place] % (Auto) 7.6 (3-14) % Eos % (Auto) 8.7 H (2-4) % Baso % (Auto) 0.4 (0-2) % Neut # (Auto) 4400 (4345-7979) /uL Lymph # (Auto) 600 L (5447-6845) /uL [place] # (Auto) 500 (0-900) /uL Eos # (Auto) 500 H (0-450) /uL Baso # (Auto) 0 (0-100) /uL Sodium 128 L (137-145) mmol/L Potassium 4.3 (3.4-5.1) mmol/L Chloride 96 L (98-107) mmol/L Carbon Dioxide 24 (22-32) mmol/L BUN 17 (7-17) mg/dL Creatinine 0.81 (0.52-1.04) mg/dL Estimated GFR > 60 (>60) mL/min BUN/Creatinine Ratio 21.0 (6-22) Glucose 95 (70-99) mg/dL Calcium 9.5 (8.4-10.2) mg/dL Magnesium 1.7 (1.6-2.3) mg/dL Total Bilirubin 1.3 (0.2-1.3) mg/dL AST 22 (14-36) IU/L ALT 15 (<35) IU/L Alkaline Phosphatase 100 (38-126) U/L Total Creatine Kinase 58 (30-135) U/L Troponin I < 0.012 (0.01-0.034) ng/mL Total Protein 6.8 (6.3-8.2) g/dL Albumin 4.3 (3.5-5.0) g/dL Globulin 2.5 (1.7-4.1) g/dL Albumin/Globulin Ratio 1.7 (1.0-2.8) Lipase 31 (23-300) U/L ECG Data Interpretation: EKG interpreted ED physician sinus bradycardia 53 beats per minute QTC 401, normal axis, QRS ID interval within normal limits no STEMI MDM Narrative Medical decision making narrative: Patient is a 69-year-old female history of hyperlipidemia, hypertension brought into the ED from home for evaluation of left upper arm pain. Patient states that this is a been ongoing persistent for the past 2 weeks. Patient states that this was nontraumatic in nature has followed with the primary care was already prescribed analgesic and muscle relaxers however given persistent symptoms decided to reach back out to primary care and orthopedic surgery however they instructed her to be evaluated in the emergency department. On exam patient with reproducible tenderness to palpation of the left tricep, she has no gross deformities she is neurovascularly intact to bilateral upper extremities. EKG nonischemic in nature she denies any actual chest pain shortness breath or any other symptoms at this time. She is not on any blood thinners. Patient had lab work imaging EKG performed here. Ultrasound of the upper extremity without any evidence of DVT. Lab work unremarkable, troponin negative, x-ray of the chest without any acute cardiopulmonary abnormality. I believe her symptoms are more secondary to muscle tendon, high instructed to follow up with primary care and orthopedic surgery in outpatient setting she verbalized understanding of this and agrees to being discharged home with outpatient follow up Discharge Plan Departure Patient Disposition: Home Clinical Impression: Arm pain, left Activity Restrictions/Additional Instructions: Please follow up with the primary care doctor and orthopedic surgery in outpatient setting Please read the discharge instructions sheet carefully and bring all papers to all doctor follow-up visits, as it may contain information that your doctor may want to see. Disease processes change and evolve, if your symptoms worsen or if you develop any new symptoms that are concerning to you please return for evaluation. Your evaluation today does not show any evidence of any life-threatening/serious illnesses requiring admission to the hospital or surgery. Please follow-up with your doctor for re-evaluation in approximately 1 day. Seek immediate medical attention for any worrisome symptoms. *If you do not have a primary care provider please contact the [facility] Resource line at [phone]. They will ask some questions about your medical history and help get you set up with a doctor in the community. Prescriptions: No Action ondansetron 4 mg tablet,disintegrating 4 mg PO Q8H PRN atorvastatin 20 mg tablet 20 mg PO DAILY gabapentin 100 mg capsule 100 mg PO DAILY Rx Instructions: Pt. takes 2 tablets daily aspirin 81 mg Tablet,Delayed Release (Dr/Ec) 81 mg PO DAILY Qty: 30 0RF losartan 25 mg tablet 25 mg PO DAILY Qty: 30 0RF phenazopyridine [Pyridium] 200 mg tablet 200 mg PO TID PRN (Reason: pain) Qty: 10 0RF tramadol 50 mg tablet 50 mg PO TID PRN (Reason: pain) Qty: 8 0RF Referrals: Laura Paz ARNP [Primary Care Provider, Family Practice] Oscar Guardado MD [Physician, Orthopedic Surgery] Stand Alone Forms: Patient Portal/API
--- NOTE | 2025-05-15 10:12 | EKG_ITS ---
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
--- NOTE | 2025-05-15 10:15 | DI.US.S_ITS ---
PROCEDURE: US PERIPH VENOUS UP EXTREM LT INDICATIONS: PAIN TECHNIQUE: Real-time imaging, as well as color and pulse Doppler interrogation, was performed of the upper extremity deep veins from the inferior neck to the antecubital fossa. COMPARISON: None. FINDINGS: The internal jugular vein, visualized portions of the subclavian vein, axillary, and brachial veins are free of intraluminal thrombus. Where physically possible, the veins are normally compressible. Color and pulse Doppler demonstrate normal intraluminal flow, with expected phasicity and pulsatility. Additional scanning of the cephalic and basilic veins of the superficial system demonstrates normal compressibility, without thrombus. IMPRESSION: No findings of upper extremity deep venous thrombosis can be seen. Dictated by: Louis Davis M.D. on 05/15/2025 at 10:53 Approved by: Louis Davis M.D. on 05/15/2025 at 10:53
--- NOTE | 2025-05-15 10:15 | DI.RAD.S_ITS ---
PROCEDURE: XR CHEST 1V INDICATIONS: LEFT ARM PAIN TECHNIQUE: One view of the chest was acquired. COMPARISON: [facility], CR, XR CHEST 1V, 04/24/2024, 11:06. FINDINGS: Surgical changes and devices: None. Lungs and pleura: Lungs are clear. No pleural effusions or pneumothorax. Mediastinum: Mediastinal contours appear normal. Heart size is normal. Bones and chest wall: No suspicious bony lesions. Overlying soft tissues appear unremarkable. IMPRESSION: No acute cardiopulmonary pathology. Dictated by: Fran Ballard M.D. on 05/15/2025 at 10:52 Approved by: Fran Ballard M.D. on 05/15/2025 at 10:52
[2025-05-15 11:07] LABS: Add Manual Diff / Slide Review NO; Hematocrit 35.5 % (36-46); Hemoglobin 12.4 g/dL (12.0-16.0); Lymphocytes Absolute Auto 600 /uL (1100-4500); Mean Corpuscular HGB Conc 34.8 % (30-36); Mean Corpuscular Hemoglobin 31.2 PG (26-34); Mean Corpuscular Volume 89.5 fL (80-100); Platelet Count 194 X10^3/uL (150-400)
[2025-05-15 11:19] LABS: Alanine Aminotransferase 15 IU/L (<35); Albumin 4.3 g/dL (3.5-5.0); Albumin Globulin Ratio 1.7 (1.0-2.8); Alkaline Phosphatase 100 U/L (38-126); Blood Urea Nitrogen 17 mg/dL (7-17); Calcium 9.5 mg/dL (8.4-10.2); Carbon Dioxide 24 mmol/L (22-32); Chloride 96 mmol/L (98-107); Creatine Kinase 58 U/L (30-135); Estimated Glomerular Filt Rate > 60 mL/min (>60); Globulin 2.5 g/dL (1.7-4.1); Glucose 95 mg/dL (70-99); HEMOLYSIS < 15 (0-50); Lipase 31 U/L (23-300); Magnesium 1.7 mg/dL (1.6-2.3); Potassium 4.3 mmol/L (3.4-5.1); Sodium 128 mmol/L (137-145); Total Protein 6.8 g/dL (6.3-8.2)
[2025-05-15 11:31] LABS: Troponin I < 0.012 ng/mL (0.01-0.034)
[2025-05-15] MEDS: ONDANSETRON 4 MG/2 ML INJ IV (12:08)
[2025-05-15] MEDS: MORPHINE 4 MG/ML INJ 2 MG IV (12:08)
== END 2025-05-15 12:40 | disposition home or self-care (01) ==
PROVIDERS: Emergency Provider Student in an Organized Health Care Education/Training Program; PCP Internal Medicine
DX: M79.602 Pain in left arm (principal)
CPT/HCPCS: 36415; 71045; 80053; 82550; 83690; 83735; 84484; 85025; 93005; 93971; 96374; 96375; 99284; J2270; J2405